=== PATIENT | female | born 1945 | race Caucasian/White ===

== ENCOUNTER 2017-04-03 13:12 | Inpatient (IN) | payer BC, MEDICARE ==
--- NOTE | 2017-04-03 13:36 | ED ---
General Adult HPI - General Chief complaint: Weakness Stated complaint: Chest Pain Time Seen by Provider: 04/03/17 13:30 Source: patient, RN notes reviewed, old records reviewed Mode of arrival: wheelchair Limitations: no limitations - History of Present Illness Initial comments: This is a 72-year-old female here for evaluation of shortness of breath cough and congestion, exertional dyspnea. Patient's brought him for evaluation regarding shortness of breath. Patient is a positive smoker with history of COPD. Vision denies any chest pain, states her symptoms went on for about a week. Progressively worsening, worsening source of breath with exertion. No chest pain. No symptoms symptoms of syncope. No significant improvement with breathing treatments. Patient is not on oxygen - Related Data Home Medications Medication Instructions Recorded Confirmed No Known Home Medications [No 04/03/17 04/03/17 Known Home Medications] Allergies Allergy/AdvReac Type Severity Reaction Status Date / Time Sulfa (Sulfonamide Allergy Anaphylaxis Verified 04/03/17 13:58 Antibiotics) Review of Systems ROS Statement: Those systems with pertinent positive or pertinent negative responses have been documented in the HPI. ROS Other: All systems not noted in ROS Statement are negative. Past Medical History Past Medical History: COPD Additional Past Medical History / Comment(s): blood clots History of Any Multi-Drug Resistant Organisms: None Reported Past Surgical History: Hysterectomy Additional Past Surgical History / Comment(s): (L) wrist surgery, craniotomy Past Psychological History: No Psychological Hx Reported Smoking Status: Current every day smoker Past Alcohol Use History: Occasional Past Drug Use History: None Reported General Exam Limitations: no limitations General appearance: alert, in no apparent distress, cachectic Head exam: Present: atraumatic, normocephalic, normal inspection Eye exam: Present: normal appearance, PERRL, EOMI. Absent: scleral icterus, conjunctival injection, periorbital swelling ENT exam: Present: normal exam, mucous membranes dry Neck exam: Present: normal inspection. Absent: tenderness, meningismus, lymphadenopathy Respiratory exam: Present: wheezes, decreased breath sounds, prolonged expiratory. Absent: normal lung sounds bilaterally, respiratory distress, rales , rhonchi, stridor Cardiovascular Exam: Present: regular rate, normal rhythm, normal heart sounds. Absent: systolic murmur, diastolic murmur, rubs, gallop, clicks GI/Abdominal exam: Present: soft, normal bowel sounds. Absent: distended, tenderness, guarding, rebound, rigid Extremities exam: Present: normal inspection, full ROM, normal capillary refill. Absent: tenderness, pedal edema, joint swelling, calf tenderness Back exam: Present: normal inspection Neurological exam: Present: alert, oriented X3, CN II-XII intact Psychiatric exam: Present: normal affect, normal mood Skin exam: Present: warm, dry, intact, normal color. Absent: rash Course Vital Signs 04/03/17 04/03/17 13:13 13:20 Temperature 98.1 F 97.3 F L Pulse Rate 81 72 Respiratory 20 16 Rate Blood Pressure 149/68 150/71 O2 Sat by Pulse 100 99 Oximetry - Reevaluation(s) Reevaluation #1: 04/03/17 14:54 Patient does have good breathing improvement and feeling better with hydration, no chest pain EKG Findings - EKG Comments: EKG Findings:: EKG shows normal sinus rate of 82, IL 140, QRS 106, QTC 467 Medical Decision Making - Medical Decision Making 72 female here for evaluation of shortness of breath, increasing exertional dyspnea. Anemia, COPD exacerbation, renal failure dehydration and elevated troponin. Patient be admitted for trending of hemoglobin and troponin, treatment of COPD and rehydration - Lab Data Result diagrams: 04/03/17 13:45 04/03/17 13:45 Lab Results 04/03/17 04/03/17 04/03/17 Range/Units 13:45 13:45 13:45 WBC 4.4 (3.8-10.6) k/uL RBC 2.38 L (3.80-5.40) m/uL Hgb 7.7 L (11.4-16.0) gm/dL Hct 25.0 L (34.0-46.0) % MCV 105.0 H (80.0-100.0) fL MCH 32.3 (25.0-35.0) pg MCHC 30.8 L (31.0-37.0) g/dL RDW 17.7 H (11.5-15.5) % Plt Count 244 (150-450) k/uL Sodium 136 L (137-145) mmol/L Potassium 3.2 L (3.5-5.1) mmol/L Chloride 110 H (98-107) mmol/L Carbon Dioxide 16 L (22-30) mmol/L Anion Gap 10 mmol/L BUN 24 H (7-17) mg/dL Creatinine 2.52 H (0.52-1.04) mg/dL Est GFR (MDRD) Af Amer 23 (>60 ml/min/1.73 sqM) Est GFR (MDRD) Non-Af 19 (>60 ml/min/1.73 sqM) Glucose 88 (74-99) mg/dL Calcium 8.1 L (8.4-10.2) mg/dL Phosphorus 2.9 (2.5-4.5) mg/dL Magnesium 2.3 (1.6-2.3) mg/dL Total Bilirubin 0.5 (0.2-1.3) mg/dL AST 26 (14-36) U/L ALT 23 (9-52) U/L Alkaline Phosphatase 80 (38-126) U/L Total Creatine Kinase 30 (30-135) U/L CK-MB (CK-2) 0.7 (0.0-2.4) ng/mL CK-MB (CK-2) Rel Index 2.3 Troponin I 0.041 H* (0.000-0.034) ng/mL Total Protein 7.0 (6.3-8.2) g/dL Albumin 3.1 L (3.5-5.0) g/dL - Radiology Data Radiology results: report reviewed (Chest x-ray shows possible mild effusion), image reviewed Critical Care Time Critical Care Time: Yes Total Critical Care Time: 31 Disposition Clinical Impression: Dehydration, Hypokalemia, ARF (acute renal failure), Elevated troponin, COPD exacerbation, Anemia Disposition: ADMITTED IP TO THIS HOSP Condition: Undetermined Referrals: Amanda Cali MD [Primary Care Provider] - 1-2 days
[2017-04-03 13:57] LABS: Anisocytosis Slight; Basophils % (A) 0 %; CHCM 30.8; Eosinophils # (A) 0.1 k/uL (0-0.7); Eosinophils % (A) 1 %; HDW 3.12; HGB 7.7 gm/dL (11.4-16.0); Hypochromasia Moderate; Luc # (Auto) 0.09; Luc % (Auto) 2; Lymphocytes # (A) 0.5 k/uL (1.0-4.8); Lymphocytes % (A) 11 %; MCH 32.3 pg (25.0-35.0); MCHC 30.8 g/dL (31.0-37.0); Macrocytosis Marked; Mean Platelet Volume 8.8; Monocytes # (A) 0.3 k/uL (0-1.0); Monocytes % (A) 6 %; Neutrophils # (A) 3.5 k/uL (1.3-7.7); Neutrophils % (A) 79 %; RBC 2.38 m/uL (3.80-5.40); RDW 17.7 % (11.5-15.5); WBC 4.4 k/uL (3.8-10.6)
--- NOTE | 2017-04-03 14:11 | XR ---
EXAMINATION TYPE: XR chest 2V DATE OF EXAM: 04/03/2017 COMPARISON: Chest x-ray February 05, 2015. HISTORY: Weakness and heart palpitations, shortness of breath. TECHNIQUE: Frontal and lateral views of the chest are obtained. FINDINGS: There is new small to tiny right pleural effusion and new moderate size left pleural effus ion. There is associated left basilar atelectasis and/or infiltrate. The cardiac silhouette size is within normal limits with atherosclerotic change in aortic knob. Vascular calcification left axilla i s noted. IMPRESSION: New small to tiny right and moderate size left pleural effusion with associated left bas ilar atelectasis and/or infiltrate.
[2017-04-03 14:13] LABS: Calcium 8.1 mg/dL (8.4-10.2); Magnesium 2.3 mg/dL (1.6-2.3); Phosphorous 2.9 mg/dL (2.5-4.5); Potassium 3.2 mmol/L (3.5-5.1); Total Bilirubin 0.5 mg/dL (0.2-1.3)
[2017-04-03 14:33] LABS: Creatine Kinase MB 0.7 ng/mL (0.0-2.4)
[2017-04-03 14:38] LABS: Partial Thromboplastin Time 23.3 sec (22.0-30.0); Prothrombin Time 10.3 sec (9.0-12.0)
[2017-04-03 14:42] LABS: Troponin I 0.041 ng/mL (0.000-0.034)
[2017-04-03] MEDS ORDERED: IPRATROPIUM-ALBUTEROL 3 ML NEB INHALATION STA (14:45)
[2017-04-03] MEDS ORDERED: SODIUM CHLORIDE 0.9% 500 ML IV STA (14:45)
[2017-04-03] MEDS ORDERED: SODIUM CHLORIDE 0.9% 1,000 ML IV STA ×2 (14:45)
[2017-04-03] MEDS ORDERED: methylPREDNISolone SOD SUCCI 125 MG/2 ML VIAL IV STA (14:46)
[2017-04-03] MEDS ORDERED: HEPARIN SODIUM,PORCINE 5,000 UNIT/ML 1 ML VIAL IV ONE (14:48)
[2017-04-03] MEDS ORDERED: HEPARIN SODIUM,PORCINE 5,000 UNIT/ML 1 ML VIAL IV PRN (14:48)
[2017-04-03] MEDS ORDERED: ASPIRIN 81 MG CHEW PO STA (14:48)
[2017-04-03] MEDS ORDERED: NITROGLYCERIN SL TABS 0.4 MG TAB SUBLINGUAL PRN (14:48)
[2017-04-03] MEDS: HEPARIN SODIUM,PORCINE/D5W PMX 25,000 UNIT in DEXTROSE/WATER 1 500ML.BAG IV SCH (15:12)
[2017-04-03 15:22] LABS: Ovalocytes Present
[2017-04-03] MEDS: IPRATROPIUM-ALBUTEROL 3 ML NEB INHALATION SCH ×2 (16:28→19:46)
[2017-04-03 17:04] LABS: Glucose,Whole Blood 127 mg/dL (75-99)
[2017-04-03] MEDS: methylPREDNISolone SOD SUCCI 125 MG/2 ML VIAL IV SCH ×2 (18:55→23:07)
[2017-04-03 19:56] LABS: Creatine Kinase MB 0.6 ng/mL (0.0-2.4)
[2017-04-03 20:02] LABS: Troponin I 0.037 ng/mL (0.000-0.034)
[2017-04-03 20:39] LABS: Glucose,Whole Blood 261 mg/dL (75-99)
[2017-04-03] MEDS ORDERED: IPRATROPIUM-ALBUTEROL 3 ML NEB INHALATION PRN (21:52)
[2017-04-03 23:01] LABS: Glucose,Whole Blood 310 mg/dL (75-99)
[2017-04-03] MEDS: INSULIN LISPRO (humaLOG) 300 UNIT/3 ML VIAL SQ SCH (23:01)
[2017-04-04 03:10] LABS: Creatine Kinase MB 0.7 ng/mL (0.0-2.4); Troponin I 0.032 ng/mL (0.000-0.034)
[2017-04-04 05:57] LABS: Glucose,Whole Blood 163 mg/dL (75-99)
[2017-04-04 06:06] LABS: Cholesterol 108 mg/dL (<200); HDL Cholesterol 44 mg/dL (40-60); Triglycerides 49 mg/dL (<150)
[2017-04-04] MEDS: methylPREDNISolone SOD SUCCI 125 MG/2 ML VIAL IV SCH ×2 (06:28→11:39)
[2017-04-04] MEDS: INSULIN LISPRO (humaLOG) 300 UNIT/3 ML VIAL SQ SCH ×4 (06:29→21:03)
[2017-04-04] MEDS: IPRATROPIUM-ALBUTEROL 3 ML NEB INHALATION SCH ×4 (08:07→19:22)
[2017-04-04] MEDS ORDERED: ASPIRIN 325 MG TAB PO SCH (09:00)
--- NOTE | 2017-04-04 09:21 | P.NPCON ---
History of Present Illness - Reason for Consult acute renal failure - History of Present Illness Reason for consultation: Acute kidney injury History of present illness: Patient is a 72-year-old female seen in renal consultation for acute kidney injury. Unclear as to where baseline renal function is. Looking at previous records, her creatinine in March 2015 was 3.45. This admission a creatinine is 2.52. Patient presented with exertional dyspnea. Patient states she felt extremely weak and felt her heart pounding while ambulating very short distances. She did have an episode of chest pain this morning which resolved spontaneously. She denies use of NSAIDs. Denies any prior history of kidney disease. Denies family history of renal disease. Oral intake has been fair. No vomiting or diarrhea. Admits to good urine output. No hematuria or dysuria. Her blood pressures have been quite labile ranging from systolic low 100s up to 174 this admission. She did receive a 500 mL bolus in the emergency room and is currently maintained on a heparin drip. She does have history of tobacco abuse and admits to smoking about a pack a day for the last several years. No history of diabetes. Vital signs are stable. General: The patient appeared well nourished and normally developed. HEENT: Head exam is unremarkable. Neck is without jugular venous distension. LUNGS: Lungs are clear to auscultation and percussion. Breath sounds decreased. HEART: Rate and Rhythm are regular. First and second heart sounds normal. No murmurs, rubs or gallops. ABDOMEN: Abdominal exam reveals normal bowel sounds. Non-tender and non- distended. No evidence of peritonitis. EXTREMITITES: No clubbing, cyanosis, or edema. Past Medical History Past Medical History: COPD, Osteoarthritis (OA) Additional Past Medical History / Comment(s): "in past fell off her proch hit head so hard it moved her brain and developed 7 blood clots for which she had a craniotomy", past lt broken writs(sx to repair", shingles , ulcer, murmur. History of Any Multi-Drug Resistant Organisms: None Reported Past Surgical History: Hysterectomy, Tonsillectomy, Tubal Ligation Additional Past Surgical History / Comment(s): (L) wrist surgery, craniotomy Past Anesthesia/Blood Transfusion Reactions: No Reported Reaction Smoking Status: Current every day smoker - Past Family History Father Family Medical History: No Reported History Mother Additional Family Medical History / Comment(s): stomcah problems and ulcers. Medications and Allergies Home Medications Medication Instructions Recorded Confirmed Type No Known Home Medications [No 04/03/17 04/03/17 History Known Home Medications] Allergies Allergy/AdvReac Type Severity Reaction Status Date / Time Sulfa (Sulfonamide Allergy Anaphylaxis Verified 04/03/17 13:58 Antibiotics) Physical Exam Vitals: Vital Signs Temp Pulse Pulse Resp BP BP Pulse Ox 04/04/17 08:53 70 04/04/17 08:43 68 04/04/17 04:00 98 F 82 18 113/58 98 04/03/17 23:22 86 18 108/54 97 04/03/17 20:00 97.8 F 76 18 112/55 99 04/03/17 19:57 66 04/03/17 19:46 68 04/03/17 15:57 64 18 174/74 98 04/03/17 15:47 66 04/03/17 15:36 68 04/03/17 15:15 98.4 F 69 16 136/64 100 04/03/17 14:48 98 04/03/17 13:20 97.3 F L 72 16 150/71 99 04/03/17 13:13 98.1 F 81 20 149/68 100 Intake and Output 04/03/17 04/04/17 04/04/17 22:59 06:59 14:59 Intake Total 200 182.535 240 Balance 200 182.535 240 Intake: Intake, IV Titration 182.535 Amount Heparin Sodium,Porcine/ 182.535 D5w Pmx 25,000 unit In Dextrose/Water 1 500ml. bag @ 12 UNITS/KG/HR 14. 15 mls/hr IV .Q24H [facility] Rx #:[id number] Oral 200 240 Other: # Voids 1 Weight 44.9 kg Results - Lab Results Most recent lab results Calcium 8.1 mg/dL (8.4-10.2) L 04/03/17 13:45 Phosphorus 2.9 mg/dL (2.5-4.5) 04/03/17 13:45 Magnesium 2.3 mg/dL (1.6-2.3) 04/03/17 13:45 04/03/17 13:45 04/03/17 13:45 Assessment and Plan Plan: Assessment: #1. Nonoliguric acute kidney injury that appears mostly prerenal in nature. Creatinine 2.5 on admission. Labs from today are pending at this time. Unclear as to what her baseline renal function is. Creatinine was 3.45 from March 2015. No other records are available at this time. #2. Metabolic acidosis secondary to acute kidney injury. #3. Hypokalemia related to poor nutritional status. Magnesium level normal. I don't see any diuretics and her home medications. I don't see evidence of hyper aldosteronism as her blood pressures are on the lower side. #4. Anemia. Rule out iron deficiency. #5. Rule out chronic kidney disease. Plan: Check urinalysis. Check renal ultrasound. Check ferritin level and iron studies. Start oral sodium bicarbonate 1300 mg twice daily. Start normal saline to be run at 60 mL an hour. Follow-up morning labs and repeat electrolytes again in the morning. Monitor hemoglobin closely. Patient currently also on heparin drip. Thank you for the consultation. I will continue to follow the patient with you during her hospital stay.
[2017-04-04 09:26] LABS: Hemoglobin A1C 4.5 % (4.2-6.1)
[2017-04-04] MEDS ORDERED: SODIUM CHLORIDE 0.9% 1,000 ML IV SCH (09:30)
[2017-04-04 10:05] LABS: Mean Platelet Volume 8.9
[2017-04-04 10:12] LABS: Appearance,Urine Clear (Clear); Bilirubin,Urine Negative (Negative); Glucose,Urine (UA) 2+ (Negative); Ketones,Urine Negative (Negative); Leukocyte Esterase,Urine Trace (Negative); Nitrite,Urine Negative (Negative); Particle Count 7124; Protein,Urine 1+ (Negative); RBC,Urine <1 /hpf (0-5); Specific Gravity,Urine 1.007 (1.001-1.035); Squamous Epithelial Cell,Urine <1 /hpf (0-4); UA Billing (MACRO vs. MICRO) MICRO; Urobilinogen,Urine <2.0 mg/dL (<2.0); WBC,Urine 3 /hpf (0-5)
[2017-04-04 10:20] LABS: Calcium 7.8 mg/dL (8.4-10.2); Potassium 3.2 mmol/L (3.5-5.1)
[2017-04-04] MEDS: NICOTINE 21MG/24HR PATCH TRANSDERM SCH (10:42)
[2017-04-04] MEDS ORDERED: POTASSIUM CHLORIDE ER 20 MEQ TAB.ER PO STA (11:23)
[2017-04-04 11:30] LABS: Glucose,Whole Blood 297 mg/dL (75-99)
[2017-04-04] MEDS ORDERED: FUROSEMIDE 10 MG/ML 4 ML VIAL IV STA (11:36)
[2017-04-04] MEDS: WATER FOR INJECTION, STERILE 1,000 ML with SODIUM ACETATE 150 MEQ IV SCH ×2 (11:48)
--- NOTE | 2017-04-04 11:54 | US ---
EXAMINATION TYPE: US kidneys/renal and bladder DATE OF EXAM: 04/04/2017 COMPARISON: 05/05/2015 CLINICAL HISTORY: carmen. History of renal cysts EXAM MEASUREMENTS: Right Kidney: 7.0 x 3.1 x 2.8 cm Left Kidney: 9.1 x 4.8 x 5.0 cm Right Kidney: atrophic, echogenic with cortical thinning, lobulated, cystic area mid = 1.0 x 1.0 x 1. 1cm Left Kidney: Multiple cysts noted, largest = 1.1 x 0.9 x 1.2cm Bladder: appears wnl Bilateral Jets seen: no IMPRESSION: 1. Right kidney is atrophic with cortical thinning and findings suggestive of chronic medical renal d isease. 2. Multiple hypoechoic nodules involving the left kidney most typical of renal cysts
[2017-04-04 12:02] LABS: % Iron Saturation 8.8 % (20-50)
--- NOTE | 2017-04-04 15:05 | P.CRDCN ---
History of Present Illness Consult date: 04/04/17 Requesting physician: Colin Lopez Consult reason: congestive heart failure Chief complaint: Shortness of breath and palpitations History of present illness: This is a 72-year-old female with history of nicotine dependence, COPD , who presents to the hospital with symptoms of worsening shortness of breath with associated palpitations. She states that she feels the palpitations mostly when she exerts herself. Patient also has history of craniotomy for removal of blood clots after experiencing a fall. EKG performed on arrival here showed a normal sinus rhythm with nonspecific ST-T wave changes.. On review of the rhythm strips it does appear patient had an episode of Ultrasound of the kidneys and bladder reveal multiple hypodense echo with nodules involving the left kidney. Right kidney is atrophic suggestive of chronic renal disease. Chest x-ray shows new right side moderate pleural effusion. Hemoglobin 7.7, platelet count 244, sodium 136, potassium 3.2, BUN 24, creatinine 2.5 on admission, this morning BUN is 31 with creatinine of 2.9. Nephrology consultation has been requested. Initial troponin 0.037, subsequent troponin 0.032. BNP level18,800. Patient was given a one-time dose of IV Lasix by nephrology. Continues to be on IV heparin for the abnormal troponin. We will decrease the aspirin 81 mg daily. Patient also received 2500 mL normal saline in the emergency room. Past Medical History Past Medical History: COPD, Osteoarthritis (OA) Additional Past Medical History / Comment(s): "in past fell off her proch hit head so hard it moved her brain and developed 7 blood clots for which she had a craniotomy", past lt broken writs(sx to repair", shingles , ulcer, murmur. History of Any Multi-Drug Resistant Organisms: None Reported Past Surgical History: Hysterectomy, Tonsillectomy, Tubal Ligation Additional Past Surgical History / Comment(s): (L) wrist surgery, craniotomy Past Anesthesia/Blood Transfusion Reactions: No Reported Reaction Smoking Status: Current every day smoker - Past Family History Father Family Medical History: No Reported History Mother Additional Family Medical History / Comment(s): stomcah problems and ulcers. Medications and Allergies Home Medications Medication Instructions Recorded Confirmed Type No Known Home Medications [No 04/03/17 04/03/17 History Known Home Medications] Allergies Allergy/AdvReac Type Severity Reaction Status Date / Time Sulfa (Sulfonamide Allergy Anaphylaxis Verified 04/03/17 13:58 Antibiotics) Physical Exam Vitals: Vital Signs Temp Pulse Pulse Resp BP BP Pulse Ox 04/04/17 14:10 74 04/04/17 13:58 72 04/04/17 12:00 97.1 F L 86 20 133/62 99 04/04/17 08:53 70 04/04/17 08:43 68 04/04/17 08:00 97.0 F L 68 18 148/80 100 04/04/17 04:00 98 F 82 18 113/58 98 04/03/17 23:22 86 18 108/54 97 04/03/17 20:00 97.8 F 76 18 112/55 99 04/03/17 19:57 66 04/03/17 19:46 68 04/03/17 15:57 64 18 174/74 98 04/03/17 15:47 66 04/03/17 15:36 68 04/03/17 15:15 98.4 F 69 16 136/64 100 04/03/17 14:48 98 Intake and Output 04/03/17 04/04/17 04/04/17 22:59 06:59 14:59 Intake Total 200 182.535 240 Output Total 300 Balance 200 182.535 -60 Intake: Intake, IV Titration 182.535 Amount Heparin Sodium,Porcine/ 182.535 D5w Pmx 25,000 unit In Dextrose/Water 1 500ml. bag @ 12 UNITS/KG/HR 14. 15 mls/hr IV .Q24H [facility] Rx #:[id number] Oral 200 240 Output: Urine 300 Other: # Voids 1 1 Weight 44.9 kg 44.9 kg Patient Weight 04/05/17 06:59 Weight 44.9 kg PHYSICAL EXAMINATION: HEENT: Head is atraumatic, normocephalic. Pupils equal, round. Neck is supple. There is no elevated jugular venous pressure. HEART EXAMINATION: Heart S1 and S2 systolic murmur is heard. CHEST EXAMINATION: Lungs revealed decreased air exchange throughout with fine expiratory wheezes and diminished air entry to bilateral bases. ABDOMEN: Soft, nontender. Bowel sounds are heard. No organomegaly noted. EXTREMITIES: 2+ peripheral pulses with no evidence of peripheral edema and no calf tenderness noted. NEUROLOGIC patient is awake, alert and oriented -3. . Results 04/04/17 09:33 04/04/17 09:33 Cardiac Enzymes 04/03/17 04/03/17 04/04/17 Range/Units 13:45 19:05 02:12 CK-MB (CK-2) 0.7 0.6 0.7 (0.0-2.4) ng/mL Troponin I 0.041 H* 0.037 H* 0.032 (0.000-0.034) ng/mL Coagulation 04/03/17 04/03/17 04/04/17 Range/Units 14:14 19:15 02:12 PT 10.3 (9.0-12.0) sec APTT 23.3 65.2 H 43.6 H (22.0-30.0) sec 04/04/17 Range/Units 09:33 PT (9.0-12.0) sec APTT 45.1 H (22.0-30.0) sec Lipids 04/04/17 Range/Units 02:12 Triglycerides 49 (<150) mg/dL Cholesterol 108 (<200) mg/dL HDL Cholesterol 44 (40-60) mg/dL CBC 04/03/17 04/04/17 Range/Units 13:45 09:33 WBC 4.4 (3.8-10.6) k/uL RBC 2.38 L (3.80-5.40) m/uL Hgb 7.7 L (11.4-16.0) gm/dL Hct 25.0 L (34.0-46.0) % Plt Count 244 239 (150-450) k/uL Comprehensive Metabolic Panel 04/04/17 Range/Units 09:33 Sodium 136 L (137-145) mmol/L Potassium 3.2 L (3.5-5.1) mmol/L Chloride 110 H (98-107) mmol/L Carbon Dioxide 13 L (22-30) mmol/L BUN 31 H (7-17) mg/dL Creatinine 2.90 H (0.52-1.04) mg/dL Glucose 193 H (74-99) mg/dL Calcium 7.8 L (8.4-10.2) mg/dL Current Medications Generic Name Dose Route Start Last Admin Trade Name Freq PRN Reason Stop Dose Admin Albuterol/Ipratropium 3 ml 04/03/17 21:52 04/04/17 08:42 Duoneb 0.5 Mg-3 Mg/3 Ml Soln INHALATION 3 ml RT-QID PRN Administration Shortness Of Breath Or Wheezing Albuterol/Ipratropium 3 ml 04/04/17 08:00 04/04/17 13:58 Duoneb 0.5 Mg-3 Mg/3 Ml Soln INHALATION 3 ml RT-QID DINORAH Administration Aspirin 325 mg 04/04/17 09:00 04/04/17 08:06 Aspirin PO 325 mg DAILY DINORAH Administration Heparin Sodium (Porcine) 0 unit 04/03/17 14:48 Heparin IV Q6HR PRN Low PTT Protocol Heparin Sodium/Dextrose 25,000 500 mls @ 14.15 mls/hr 04/03/17 15:00 04:06 unit/ IV Solution IV 14 units/kg/hr .Q24H DINORAH 16.51 mls/hr Protocol Titration 12 UNITS/KG/HR Sodium Acetate 150 meq/ 1,075 mls @ 60 mls/hr 04/04/17 11:45 04/04/17 11:48 Sterile Water IV 60 mls/hr .[id number] DINORAH Administration Insulin Human Lispro 0 unit 04/03/17 22:15 04/04/17 11:39 Humalog SQ 3 unit ACHS DINORAH Administration Protocol Nicotine 1 patch 04/04/17 09:00 04/04/17 10:42 Habitrol 21mg/24hr Patch TRANSDERM Not Given DAILY [facility] Nitroglycerin 0.4 mg 04/03/17 14:48 Nitrostat SUBLINGUAL Q5M PRN Chest Pain Prednisone 40 mg 04/05/17 09:00 PO DAILY DINORAH Sodium Bicarbonate 1,300 mg 04/04/17 21:00 Sodium Bicarbonate Tab PO BID DINORAH Intake and Output 04/03/17 04/04/17 04/04/17 22:59 06:59 14:59 Intake Total 200 182.535 240 Output Total 300 Balance 200 182.535 -60 Intake: Intake, IV Titration 182.535 Amount Heparin Sodium,Porcine/ 182.535 D5w Pmx 25,000 unit In Dextrose/Water 1 500ml. bag @ 12 UNITS/KG/HR 14. 15 mls/hr IV .Q24H [facility] Rx #:[id number] Oral 200 240 Output: Urine 300 Other: # Voids 1 1 Weight 44.9 kg 44.9 kg Patient Weight 04/05/17 06:59 Weight 44.9 kg 04/04/17 09:33 04/04/17 09:33 EKG Interpretations (text) EKG shows normal sinus rhythm with no acute changes. Assessment and Plan Plan: Assessment and plan #1 symptoms of shortness of breath, likely exacerbation of COPD. #2 acute on chronic renal failure #3 nicotine dependence #4 history of COPD #5 complaints of intermittent exertional palpitations or with evidence of brief run of supraventricular tachycardia #6 hypokalemia #7 abnormal BNP in the setting of acute renal failure #8 abnormal troponin, not consistent with acute coronary syndrome, likely secondary to acute renal failure. Plan We will obtain an echocardiogram with Doppler study. Discontinue IV heparin, decrease aspirin 81 mg daily. We will also start the patient on verapamil 40 mg one tablet by mouth 3 times a day. Further recommendations to follow. DNP note has been reviewed, I agree with a documented findings and plan of care. Patient was seen and examined.
--- NOTE | 2017-04-04 15:16 | P.PN ---
Progress Note - Text This is an addendum to the dictated cardiology consultation. The patient has a history of chronic tobacco use, drinks alcohol on a daily basis and has a history of murmur who presents with symptoms of palpitations, progressive dyspnea but no clear peripheral edema, PND or orthopnea. She denies any chest pain. On presentation she was noted to be in sinus mechanism and on the rhythm strips she had a short burst of what appears to be AV stalin reentry tachycardia. She has renal failure and has been losing weight recently. She is limited in her physical activity. On examination she has decreased breath sounds on the left was severely decreased air exchange and she has a systolic and diastolic murmur at the left upper sternal border. No peripheral edema was noted. Her lab data shows minimal elevation of the troponin which is nondiagnostic, renal failure, anemia and significantly elevated NT proBNP. The value of the NT proBNP in the face of renal failure is suboptimal. Her chest x-ray shows at least moderate left sided effusion. 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 She has findings consistent with severe COPD, aortic regurgitation and renal failure. I will obtain an echocardiogram with Doppler, follow her renal function closely and we will await the input of the pulmonary service in regard to her lung status and pleural effusion. Thank you for this consult we will follow with you.
[2017-04-04] MEDS: HEPARIN SODIUM,PORCINE/D5W PMX 25,000 UNIT in DEXTROSE/WATER 1 500ML.BAG IV SCH (15:44)
[2017-04-04] MEDS: VERAPAMIL 40 MG TAB PO SCH ×2 (16:16→21:03)
[2017-04-04 16:27] LABS: Glucose,Whole Blood 220 mg/dL (75-99)
--- NOTE | 2017-04-04 20:02 | HP ---
DATE OF ADMISSION: Patient is a 72-year-old female who came in with ( ) symptoms of ( ) without any orthopnea, PND or palpitations. Patient is in sinus rhythm here in the hospital. Patient has occasional episodes of sinus tachycardia. Patient incidentally was found elevated creatinine of 2.52 with elevated BUN and also non-anion gap metabolic acidosis. Patient denied any nausea, vomiting, diarrhea. Patient is also found to have mildly elevated troponins. At that time patient did not have any chest pain, although patient had an episode of chest pain that appeared to be non-cardiac today morning. It appeared to be mostly gastritis. We are obtaining an echocardiogram. Patient has bilateral pleural effusions without any early ARB lines. Patient was given a dose of Lasix as well and patient is at present on IV fluids ( ) that is being managed by Nephrology. Patient does have history of smoking apparently. Apparently patient was quite short of breath when she came in. Now patient has minimally decreased air entry ( ) expiratory wheezing. Switching her steroids to oral steroids. Will also obtain a brain natriuretic peptide. REVIEW OF SYSTEMS: CONSTITUTIONAL: No fever, no malaise, no fatigue. HEENT: No recent visual problems or hearing problems. Denied any sore throat. CARDIOVASCULAR: As mentioned above. PULMONARY: As mentioned above. GASTROINTESTINAL: No diarrhea, no nausea, no vomiting, no abdominal pain. Normoactive bowel sounds. NEUROLOGICAL: No headaches, no weakness, no numbness. HEMATOLOGICAL: Denies any bleeding or petechiae. GENITOURINARY: Denies any burning micturition, frequency, or urgency. MUSCULOSKELETAL/RHEUMATOLOGICAL: Denies any joint pain, swelling, or any muscle pain. ENDOCRINE: Denies any polyuria or polydipsia. The rest of the 14 point review of systems is negative. PAST MEDICAL HISTORY: 1. COPD. 2. Osteoarthritis. Patient does not use any medications at home. PAST SURGICAL HISTORY: 1. Hysterectomy. 2. Tonsillectomy. 3. Tubal ligation surgery. SOCIAL HISTORY: Patient does smoke a pack per day. Denied any alcohol abuse or any drug abuse. FAMILY HISTORY: Mother had some stomach problems and ulcer problems. ALLERGIES: SULFA DRUGS. PHYSICAL EXAMINATION: VITAL SIGNS: Temperature 98.0, pulse of 68, respiratory rate of 18, blood pressure 113/58. Saturating at 98% room air. GENERAL: The patient is alert and oriented x3, not in any acute distress. Well developed, well nourished. HEENT: Pupils are round and equally reacting to light. EOMI. No scleral icterus. No conjunctival pallor. Normocephalic, atraumatic. No pharyngeal erythema. No thyromegaly. CARDIOVASCULAR: S1 and S2 present. No murmurs, rubs, or gallops. PULMONARY: Minimally decreased air entry into bilateral lung rosales. Minimal expiratory wheezing was appreciated. ABDOMEN: Soft, nontender, nondistended, normoactive bowel sounds. No palpable organomegaly. MUSCULOSKELETAL: No joint swelling or deformity. EXTREMITIES: No cyanosis, clubbing, or pedal edema. NEUROLOGICAL: Gross neurological examination did not reveal any focal deficits. SKIN: No rashes. LABORATORY DATA: CBC, CMP are abnormal for low hemoglobin of 7.7. Will obtain a B12 and a folate level. Chloride of 110. Bicarbonate of 16. Sodium 136. Potassium 3.2. BUN of 24, creatinine of 2.52. ASSESSMENT AND PLAN: 1. Acute kidney injury, most probably prerenal azotemia from intravascular volume depletion. Patient was started on IV fluids. Patient may have some chronic kidney disease as well ( ) consistent with ( ) congestion with some chronic kidney disease. Etiology of chronic kidney disease is unknown at this point of time. 2. Anemia. Will obtain B12 levels because of the macrocytic anemia. ( ) was ordered by Nephrology the other day. 3. Metabolic acidosis secondary to: 1) hyperchloremia, 2) kidney disease. 4. Elevated troponins, probably due to renal dysfunction. It appeared to be non-cardiac. Cardiology evaluated the patient and patient is getting an echocardiogram. 5. Chest pain, mostly appears to be gastritis, for which patient will be on a proton pump inhibitor. 6. Hypokalemia secondary to poor nutritional status, for which potassium will be supplemented ( ) 7. Acute respiratory failure, probably hypercapnic respiratory failure, improved with systemic steroids and ( ) patient may have COPD with ( ). 8. Moderate protein-calorie malnutrition due to poor oral intake. 9. Fatigue and excessive generalized weakness because of the above-mentioned multiple medical issues. I will obtain ( ) consultation. Will also rule out congestive heart failure with echocardiogram, as patient has minimal bilateral pleural effusions.
[2017-04-04] MEDS: SODIUM BICARBONATE TAB 650 MG TAB PO SCH (21:03)
[2017-04-04 21:17] LABS: Glucose,Whole Blood 221 mg/dL (75-99)
[2017-04-05 05:58] LABS: Glucose,Whole Blood 110 mg/dL (75-99)
[2017-04-05] MEDS: WATER FOR INJECTION, STERILE 1,000 ML with SODIUM ACETATE 150 MEQ IV SCH ×4 (06:07→12:46)
[2017-04-05] MEDS: INSULIN LISPRO (humaLOG) 300 UNIT/3 ML VIAL SQ SCH ×4 (06:07→21:19)
[2017-04-05] MEDS: IPRATROPIUM-ALBUTEROL 3 ML NEB INHALATION SCH ×4 (07:13→20:44)
[2017-04-05 07:24] LABS: Calcium 7.3 mg/dL (8.4-10.2); Potassium 3.6 mmol/L (3.5-5.1); Total Bilirubin 0.3 mg/dL (0.2-1.3); Total Protein 5.9 g/dL (6.3-8.2)
[2017-04-05 07:28] LABS: Anisocytosis Slight; CH 32.7; CHCM 32.3; HDW 3.36; Hypochromasia Slight; MCH 32.1 pg (25.0-35.0); MCHC 31.4 g/dL (31.0-37.0); MCV 102.3 fL (80.0-100.0); Macrocytosis Moderate; RBC 1.68 m/uL (3.80-5.40); RDW 18.4 % (11.5-15.5); WBC 9.8 k/uL (3.8-10.6)
[2017-04-05 07:56] LABS: HGB 5.4 gm/dL (11.4-16.0)
[2017-04-05 07:57] LABS: HCT 17.2 % (34.0-46.0)
[2017-04-05] MEDS: SODIUM BICARBONATE TAB 650 MG TAB PO SCH ×2 (08:14→20:06)
[2017-04-05] MEDS: VERAPAMIL 40 MG TAB PO SCH ×3 (08:14→20:07)
[2017-04-05] MEDS: predniSONE 20 MG TAB PO SCH (08:14)
[2017-04-05] MEDS: NICOTINE 21MG/24HR PATCH TRANSDERM SCH (08:15)
[2017-04-05 08:40] LABS: Anisocytosis Slight; CH 32.5; CHCM 31.2; Hypochromasia Slight; MCH 32.1 pg (25.0-35.0); MCHC 30.5 g/dL (31.0-37.0); MCV 105.3 fL (80.0-100.0); Macrocytosis Marked; Mean Platelet Volume 9.7; RBC 1.88 m/uL (3.80-5.40); RDW 18.2 % (11.5-15.5); WBC 10.1 k/uL (3.8-10.6)
[2017-04-05 08:43] LABS: HCT 19.8 % (34.0-46.0)
[2017-04-05] MEDS ORDERED: ASPIRIN 81 MG CHEW PO SCH ×2 (09:00)
--- NOTE | 2017-04-05 10:32 | ECHOF ---
Referral Reason:r/o CHF MEASUREMENTS -------- HEIGHT: 162.6 cm WEIGHT: 44.5 kg BP: 133/62 IVSd: 1.6 cm (0.6 - 1.1) LVIDd: 3.2 cm (3.9 - 5.3) LVPWd: 1.7 cm (0.6 - 1.1) IVSs: 2.5 cm LVIDs: 1.2 cm LVPWs: 2.2 cm LAESV Index (A-L): 18.85 ml/m Ao Diam: 3.7 cm (2.0 - 3.7) AV Cusp: 1.2 cm (1.5 - 2.6) LA Diam: 2.7 cm (2.7 - 3.8) MV EXCURSION: 17.961 mm (> 18.000) MV EF SLOPE: 79 mm/s (70 - 150) EPSS: 1.0 cm MV E [place]: 1.15 m/s MV DecT: 287 ms MV A [place]: 1.32 m/s MV E/A Ratio: 0.87 AR PHT: 261 ms RAP: 5.00 mmHg RVSP: 15.94 mmHg FINDINGS -------- Resting tachycardia (HR>100bpm). This was a technically good study. There is severe concentric left ventricular hypertrophy. Left ventricular systolic function is hyperdynamic with an estimated EF of >70%. Mitral Doppler inflow pattern suggests diastolic filling abnormality 26.91. The right ventricle is normal in size and function. Normal LA size by volume 22+/-6 ml/m2. The right atrium is normal in size. Aortic valve is trileaflet and is moderately thickened. There is [id number] aortic regurgitation. The aortic pressure half-time by doppler is 261ms. There is no evidence of aortic stenosis. The mitral valve leaflets are mildly thickened. Mild mitral annular calcification present. There is trace to mild mitral regurgitation. Trace tricuspid regurgitation present. There is no evidence of pulmonary hypertension. The right ventricular systolic pressure, as measured by Doppler, is 15.94mmHg. The pulmonic valve was not well visualized. The aortic root size is normal. Normal inferior vena cava with normal inspiratory collapse consistent with estimated right atrial pressure of 5 mmHg. There is no pericardial effusion. Large Pleural Effusion. CONCLUSIONS -------- 1. Resting tachycardia (HR>100bpm). 2. The mitral valve leaflets are mildly thickened. 3. Mild mitral annular calcification present. 4. There is trace to mild mitral regurgitation. 5. Trace tricuspid regurgitation present. 6. There is no evidence of pulmonary hypertension. 7. The right ventricular systolic pressure, as measured by Doppler, is 15.94mmHg. 8. The pulmonic valve was not well visualized. 9. The aortic root size is normal. 10. There is no pericardial effusion. 11. Large Pleural Effusion. 12. This was a technically good study. 13. There is severe concentric left ventricular hypertrophy. 14. Left ventricular systolic function is hyperdynamic with an estimated EF of >70%. 15. Mitral Doppler inflow pattern suggest diastolic filling abnormality 26.91. 16. Normal LA size by volume 22+/-6 ml/m2. 17. Aortic valve is trileaflet and is moderately thickened. 18. There is [id number] aortic regurgitation. 19. The aortic pressure half-time by doppler is 261ms. [employer]: Aleks Beltre RDCS
--- NOTE | 2017-04-05 10:40 | P.CNPUL ---
History of Present Illness Consult date: 04/05/17 Reason for consult: dyspnea, chest pain, pleural effusion Chief complaint: Weakness and chest pain History of present illness: Consult dated 04/05/2017 72-year-old female poor historian. Apparently comes in with complaints of chest pain shortness of breath chest congestion and difficulty breathing. Not a particularly good historian. Apparently the patient has a history of underlying COPD from previous tobacco use. I asked whether or not she sees a waste machine offbearer. She cannot answer that question. She sees a family doctor and also sees a mine safety engineer. Anyway the patient's chest x-ray showed a very tiny right-sided effusion and a moderate left-sided effusion. The patient was admitted a couple days ago. We discussed asked to see the patient now. I suspect his for left-sided effusion. Anyway the patient does not seem particularly symptomatic at this point. Effusion is not usually by any means. She is a tiny woman. It COULD BE ORDERED AND POSSIBLE THORACENTESIS CAN BE CONTEMPLATED. THE PATIENT DENIES OTHER COMPLAINTS. AGAIN THE PATIENT IS A VERY POOR HISTORIAN. Review of Systems A 12 point review of system is attempted but the patient is a very poor historian. Mostly what I can get from her shortness of breath chest congestion cough and some chest pain. Past Medical History Past Medical History: COPD, Osteoarthritis (OA) Additional Past Medical History / Comment(s): "in past fell off her proch hit head so hard it moved her brain and developed 7 blood clots for which she had a craniotomy", past lt broken writs(sx to repair", shingles , ulcer, murmur. History of Any Multi-Drug Resistant Organisms: None Reported Past Surgical History: Hysterectomy, Tonsillectomy, Tubal Ligation Additional Past Surgical History / Comment(s): (L) wrist surgery, craniotomy Past Anesthesia/Blood Transfusion Reactions: No Reported Reaction Smoking Status: Current every day smoker - Past Family History Father Family Medical History: No Reported History Mother Additional Family Medical History / Comment(s): stomcah problems and ulcers. Medications and Allergies Home Medications Medication Instructions Recorded Confirmed Type No Known Home Medications [No 04/03/17 04/03/17 History Known Home Medications] Allergies Allergy/AdvReac Type Severity Reaction Status Date / Time Sulfa (Sulfonamide Allergy Anaphylaxis Verified 04/03/17 13:58 Antibiotics) Physical Exam Osteopathic Statement: *. No significant issues noted on an osteopathic structural exam other than those noted in the History and Physical/Consult. Vitals: Vital Signs Temp Pulse Pulse Resp BP Pulse Ox 04/05/17 07:25 72 04/05/17 07:13 72 04/05/17 03:22 98.1 F 84 16 115/64 98 04/05/17 00:00 90 18 110/67 97 04/04/17 19:49 87 04/04/17 19:48 97.8 F 87 16 95/70 98 04/04/17 19:38 68 04/04/17 19:22 68 04/04/17 15:53 97.2 F L 88 16 126/68 99 04/04/17 14:10 74 04/04/17 13:58 72 04/04/17 12:00 97.1 F L 86 20 133/62 99 Intake and Output 04/04/17 04/05/17 04/05/17 22:59 06:59 14:59 Intake Total 880 Output Total 700 600 Balance 180 -600 Intake: Intake, IV Titration 360 Amount Sodium Chloride 0.9% 1, 120 000 ml @ 60 mls/hr IV . [id number] DINORAH Rx#:[id number] Water For Injection, 240 Sterile 1,000 ml @ 60 mls /hr IV .[id number] DINORAH with Sodium Acetate 150 meq Rx #:[id number] Oral 520 Output: Urine 700 600 Other: # Voids 1 Weight 45.9 kg No acute distress, oriented 3, the patient's a very poor historian. HEENT examination is grossly unremarkable. Mucous membranes are moist. Neck supple. Full range of motion. No adenopathy. No thyromegaly. Cardiovascular examination reveals distant heart sounds. S1-S2 normal. No distinct murmur noted. No S3-S4. Lungs reveal diminished breath sounds at the left base compared to the right base. No crackles or wheezes. Breasts breath sounds are equal bilaterally. Abdomen soft bowel sounds are heard. No masses or tenderness. Extremities are without cyanosis clubbing or edema. Skin without rash. Neurologic examination nonfocal. Results - Laboratory Findings CBC and BMP: 04/05/17 08:22 04/05/17 05:34 PT/INR, D-dimer PT 10.3 sec (9.0-12.0) 04/03/17 14:14 INR 1.0 (<1.1) 04/03/17 14:14 Abnormal lab findings: Abnormal Labs 04/03/17 04/03/17 04/03/17 13:45 13:45 13:45 RBC 2.38 L Hgb 7.7 L Hct 25.0 L MCV 105.0 H MCHC 30.8 L RDW 17.7 H Lymphocytes # 0.5 L APTT Sodium 136 L Potassium 3.2 L Chloride 110 H Carbon Dioxide 16 L BUN 24 H Creatinine 2.52 H Glucose POC Glucose (mg/dL) Calcium 8.1 L Iron % Saturation Total Creatine Kinase Troponin I 0.041 H* Total Protein Albumin 3.1 L Urine Protein Urine Glucose (UA) Urine Blood Ur Leukocyte Esterase Crossmatch 04/03/17 04/03/17 04/03/17 17:02 19:05 19:15 RBC Hgb Hct MCV MCHC RDW Lymphocytes # APTT 65.2 H Sodium Potassium Chloride Carbon Dioxide BUN Creatinine Glucose POC Glucose (mg/dL) 127 H Calcium Iron % Saturation Total Creatine Kinase 27 L Troponin I 0.037 H* Total Protein Albumin Urine Protein Urine Glucose (UA) Urine Blood Ur Leukocyte Esterase Crossmatch 04/03/17 04/03/17 04/04/17 20:38 22:59 02:12 RBC Hgb Hct MCV MCHC RDW Lymphocytes # APTT 43.6 H Sodium Potassium Chloride Carbon Dioxide BUN Creatinine Glucose POC Glucose (mg/dL) 261 H 310 H Calcium Iron % Saturation Total Creatine Kinase Troponin I Total Protein Albumin Urine Protein Urine Glucose (UA) Urine Blood Ur Leukocyte Esterase Crossmatch 04/04/17 04/04/17 04/04/17 05:55 09:30 09:33 RBC Hgb Hct MCV MCHC RDW Lymphocytes # APTT 45.1 H Sodium Potassium Chloride Carbon Dioxide BUN Creatinine Glucose POC Glucose (mg/dL) 163 H Calcium Iron % Saturation Total Creatine Kinase Troponin I Total Protein Albumin Urine Protein 1+ H Urine Glucose (UA) 2+ H Urine Blood Trace H Ur Leukocyte Esterase Trace H Crossmatch 04/04/17 04/04/17 04/04/17 09:33 11:24 16:25 RBC Hgb Hct MCV MCHC RDW Lymphocytes # APTT Sodium 136 L Potassium 3.2 L Chloride 110 H Carbon Dioxide 13 L BUN 31 H Creatinine 2.90 H Glucose 193 H POC Glucose (mg/dL) 297 H 220 H Calcium 7.8 L Iron 24 L % Saturation 8.8 L Total Creatine Kinase Troponin I Total Protein Albumin Urine Protein Urine Glucose (UA) Urine Blood Ur Leukocyte Esterase Crossmatch 04/04/17 04/05/17 04/05/17 21:03 05:34 05:34 RBC 1.68 L Hgb 5.4 L* D Hct 17.2 L* MCV 102.3 H MCHC RDW 18.4 H Lymphocytes # APTT Sodium 134 L Potassium Chloride Carbon Dioxide 19 L BUN 36 H Creatinine 2.74 H Glucose POC Glucose (mg/dL) 221 H Calcium 7.3 L Iron % Saturation Total Creatine Kinase Troponin I Total Protein 5.9 L Albumin 2.6 L Urine Protein Urine Glucose (UA) Urine Blood Ur Leukocyte Esterase Crossmatch 04/05/17 04/05/17 04/05/17 05:56 08:22 08:22 RBC 1.88 L Hgb 6.0 L* Hct 19.8 L* MCV 105.3 H MCHC 30.5 L RDW 18.2 H Lymphocytes # APTT Sodium Potassium Chloride Carbon Dioxide BUN Creatinine Glucose POC Glucose (mg/dL) 110 H Calcium Iron % Saturation Total Creatine Kinase Troponin I Total Protein Albumin Urine Protein Urine Glucose (UA) Urine Blood Ur Leukocyte Esterase Crossmatch See Detail - Diagnostic Findings Chest x-ray: image reviewed (X-rays medications labs are all reviewed.) Assessment and Plan (1) COPD (chronic obstructive pulmonary disease) Status: Acute (2) CHF (congestive heart failure) Status: Acute (3) Pleural effusion Status: Acute (4) Anemia Status: Acute Plan: Plan dated 04/05/2017 The patient will have an ultrasound done of the left chest. If there is enough fluid to be drained, we'll attempt that. We'll also make sure she is on any antiplatelet drugs or blood thinners which might preclude us from doing the procedure. Mild thickening consent. Additional recommendations and suggestions are forthcoming. Time with Patient: Greater than 30
[2017-04-05] MEDS ORDERED: FUROSEMIDE 10 MG/ML 4 ML VIAL IV STA ×2 (10:49→19:01)
--- NOTE | 2017-04-05 10:50 | P.PN ---
Subjective Patient is seen in follow-up for acute kidney injury on chronic kidney disease. Creatinine peaked at 2.9 yesterday and is 2.74 today. Unclear as to what her baseline renal function is. Patient presented with dyspnea. She is noted to have bilateral pleural effusions. Her oral intake is good. Hemoglobin was noted to be 5.4 this morning and she scheduled to receive blood transfusion today. Denies any melena or hematochezia. No hemoptysis. No vomiting or diarrhea. Vital signs are stable. General: The patient appeared well nourished and normally developed. HEENT: Head exam is unremarkable. Neck is without jugular venous distension. LUNGS: Lungs are clear to auscultation and percussion. Breath sounds decreased. HEART: Rate and Rhythm are regular. First and second heart sounds normal. No murmurs, rubs or gallops. ABDOMEN: Abdominal exam reveals normal bowel sounds. Non-tender and non- distended. No evidence of peritonitis. EXTREMITITES: No clubbing, cyanosis, or edema. Objective - Vital Signs Vital signs: Vital Signs Temp 98.1 F 04/05/17 03:22 Pulse 72 04/05/17 07:25 Resp 16 04/05/17 03:22 BP 115/64 04/05/17 03:22 Pulse Ox 98 04/05/17 03:22 Intake & Output 04/04/17 04/05/17 04/05/17 18:59 06:59 18:59 Intake Total 1360 Output Total 1000 600 Balance 360 -600 Weight 44.9 kg 45.9 kg Intake: Intake, IV Titration 360 Amount Sodium Chloride 0.9% 1, 120 000 ml @ 60 mls/hr IV . [id number] DINORAH Rx#:[id number] Water For Injection, 240 Sterile 1,000 ml @ 60 mls /hr IV .[id number] DINORAH with Sodium Acetate 150 meq Rx #:[id number] Oral 1000 Output: Urine 1000 600 Other: # Voids 1 - Labs CBC & Chem 7: 04/05/17 08:22 04/05/17 05:34 Labs: Abnormal Lab Results - Last 24 Hours (Table) 04/04/17 04/04/17 04/04/17 Range/Units 09:33 11:24 16:25 RBC (3.80-5.40) m/uL Hgb (11.4-16.0) gm/dL Hct (34.0-46.0) % MCV (80.0-100.0) fL MCHC (31.0-37.0) g/dL RDW (11.5-15.5) % Sodium (137-145) mmol/L Carbon Dioxide (22-30) mmol/L BUN (7-17) mg/dL Creatinine (0.52-1.04) mg/dL POC Glucose (mg/dL) 297 H 220 H (75-99) mg/dL Calcium (8.4-10.2) mg/dL Iron 24 L (37-170) ug/dL % Saturation 8.8 L (20-50) % Total Protein (6.3-8.2) g/dL Albumin (3.5-5.0) g/dL Crossmatch 04/04/17 04/05/17 04/05/17 Range/Units 21:03 05:34 05:34 RBC 1.68 L (3.80-5.40) m/uL Hgb 5.4 L* D (11.4-16.0) gm/dL Hct 17.2 L* (34.0-46.0) % MCV 102.3 H (80.0-100.0) fL MCHC (31.0-37.0) g/dL RDW 18.4 H (11.5-15.5) % Sodium 134 L (137-145) mmol/L Carbon Dioxide 19 L (22-30) mmol/L BUN 36 H (7-17) mg/dL Creatinine 2.74 H (0.52-1.04) mg/dL POC Glucose (mg/dL) 221 H (75-99) mg/dL Calcium 7.3 L (8.4-10.2) mg/dL Iron (37-170) ug/dL % Saturation (20-50) % Total Protein 5.9 L (6.3-8.2) g/dL Albumin 2.6 L (3.5-5.0) g/dL Crossmatch 04/05/17 04/05/17 04/05/17 Range/Units 05:56 08:22 08:22 RBC 1.88 L (3.80-5.40) m/uL Hgb 6.0 L* (11.4-16.0) gm/dL Hct 19.8 L* (34.0-46.0) % MCV 105.3 H (80.0-100.0) fL MCHC 30.5 L (31.0-37.0) g/dL RDW 18.2 H (11.5-15.5) % Sodium (137-145) mmol/L Carbon Dioxide (22-30) mmol/L BUN (7-17) mg/dL Creatinine (0.52-1.04) mg/dL POC Glucose (mg/dL) 110 H (75-99) mg/dL Calcium (8.4-10.2) mg/dL Iron (37-170) ug/dL % Saturation (20-50) % Total Protein (6.3-8.2) g/dL Albumin (3.5-5.0) g/dL Crossmatch See Detail Assessment and Plan Plan: Assessment: #1. Nonoliguric acute kidney injury secondary to ischemic ATN secondary to acute anemia.. Creatinine peaked at 2.9 this admission and is 2.74 today. Unclear as to what her baseline renal function is. Creatinine was 3.45 from March 2015. No other records are available at this time. #2. Metabolic acidosis secondary to acute kidney injury. #3. Hypokalemia related to poor nutritional status. Magnesium level normal. I don't see any diuretics and her home medications. I don't see evidence of hyper aldosteronism as her blood pressures are on the lower side. #4. Acute anemia with hemoglobin of 5.4 this morning. Severe iron deficiency noted. #5. Chronic kidney disease. Unclear as to what her baseline renal function is. Renal ultrasound reveals 9.1 cm left kidney and a 7 cm left kidney with cortical thinning suggestive of underlying chronic kidney disease. #6. Bilateral pleural effusions. Plan: Patient to receive 1 unit of blood transfusion today. Lasix 40 mg IV once after blood transition. Follow-up ultrasound of the chest and 2-D echocardiogram. Ferillicit 125 mg IV daily for 3 days. First dose today. Maintain oral sodium bicarbonate supplementation. Repeat electrolytes in the morning. Decrease rate of fluids to 40 mL an hour.
[2017-04-05 11:57] LABS: Glucose,Whole Blood 176 mg/dL (75-99)
--- NOTE | 2017-04-05 15:01 | US ---
EXAMINATION TYPE: US chest DATE OF EXAM: 04/05/2017 COMPARISON: CXR 04/03/2017 CLINICAL HISTORY: Left pleural effusion. Pleural effusion EXAM MEASUREMENTS: Left Pleural Effusion fluid pocket: 6.8 cm Left skin to fluid thickness: 3.6 cm Left side marked for possible thoracentesis outside the dept. Pulmonologists are able to review the images in the patient?s EMR. IMPRESSIONS: Left pleural effusion
--- NOTE | 2017-04-05 15:36 | P.PN ---
Subjective Principal diagnosis: Shortness of breath This is a 72-year-old female with history of nicotine dependence, COPD , EtOH use who presented to the hospital with symptoms of progressively worsening shortness of breath and associated palpitations. Chest x-ray revealed left-sided pleural effusion. This will be tapped today for possible thoracentesis. Overall the patient states that she is feeling better. Echocardiogram with Doppler study was performed which revealed an ejection fraction of greater than 70%. Evidence of large pleural effusion no evidence of pericardial effusion. Blood pressure 108/50 with a heart rate in the 80s. Hemoglobin this morning 5.4, patient currently receiving a blood transfusion. Potassium 3.6, BUN 36, creatinine 2.7. Magnesium 1.9 Objective - Vital Signs Vital signs: Vital Signs Temp 98.5 F 04/05/17 13:30 Pulse 85 04/05/17 13:30 Resp 16 04/05/17 13:30 BP 108/55 04/05/17 13:30 Pulse Ox 100 04/05/17 12:00 Intake & Output 04/04/17 04/05/17 04/05/17 18:59 06:59 18:59 Intake Total 1360 1452 Output Total 1000 600 300 Balance 360 -600 1152 Weight 44.9 kg 45.9 kg Intake: Intake, IV Titration 360 160 Amount Sodium Chloride 0.9% 1, 120 000 ml @ 60 mls/hr IV . [id number] DINORAH Rx#:[id number] Water For Injection, 240 160 Sterile 1,000 ml @ 40 mls /hr IV .Q24H DINORAH with Sodium Acetate 150 meq Rx #:[id number] Oral 1000 680 Blood Product 612 Rc Pheresis 2 As3 Unit 310 [id number] Output: Urine 1000 600 300 Other: # Voids 1 - Exam HYSICAL EXAMINATION: HEENT: Head is atraumatic, normocephalic. Pupils equal, round. Neck is supple. There is no elevated jugular venous pressure. HEART EXAMINATION: Heart S1 and S2 systolic murmur is heard. CHEST EXAMINATION: Lungs revealed diminished air entry to the left posteriorly ABDOMEN: Soft, nontender. Bowel sounds are heard. No organomegaly noted. EXTREMITIES: 2+ peripheral pulses with no evidence of peripheral edema and no calf tenderness noted. NEUROLOGIC patient is awake, alert and oriented -3. - Labs CBC & Chem 7: 04/05/17 08:22 04/05/17 05:34 Labs: Abnormal Lab Results - Last 24 Hours (Table) 04/04/17 04/04/17 04/05/17 Range/Units 16:25 21:03 05:34 RBC 1.68 L (3.80-5.40) m/uL Hgb 5.4 L* D (11.4-16.0) gm/dL Hct 17.2 L* (34.0-46.0) % MCV 102.3 H (80.0-100.0) fL MCHC (31.0-37.0) g/dL RDW 18.4 H (11.5-15.5) % Sodium (137-145) mmol/L Carbon Dioxide (22-30) mmol/L BUN (7-17) mg/dL Creatinine (0.52-1.04) mg/dL POC Glucose (mg/dL) 220 H 221 H (75-99) mg/dL Calcium (8.4-10.2) mg/dL Total Protein (6.3-8.2) g/dL Albumin (3.5-5.0) g/dL Crossmatch 04/05/17 04/05/17 04/05/17 Range/Units 05:34 05:56 08:22 RBC 1.88 L (3.80-5.40) m/uL Hgb 6.0 L* (11.4-16.0) gm/dL Hct 19.8 L* (34.0-46.0) % MCV 105.3 H (80.0-100.0) fL MCHC 30.5 L (31.0-37.0) g/dL RDW 18.2 H (11.5-15.5) % Sodium 134 L (137-145) mmol/L Carbon Dioxide 19 L (22-30) mmol/L BUN 36 H (7-17) mg/dL Creatinine 2.74 H (0.52-1.04) mg/dL POC Glucose (mg/dL) 110 H (75-99) mg/dL Calcium 7.3 L (8.4-10.2) mg/dL Total Protein 5.9 L (6.3-8.2) g/dL Albumin 2.6 L (3.5-5.0) g/dL Crossmatch 04/05/17 04/05/17 Range/Units 08:22 11:32 RBC (3.80-5.40) m/uL Hgb (11.4-16.0) gm/dL Hct (34.0-46.0) % MCV (80.0-100.0) fL MCHC (31.0-37.0) g/dL RDW (11.5-15.5) % Sodium (137-145) mmol/L Carbon Dioxide (22-30) mmol/L BUN (7-17) mg/dL Creatinine (0.52-1.04) mg/dL POC Glucose (mg/dL) 176 H (75-99) mg/dL Calcium (8.4-10.2) mg/dL Total Protein (6.3-8.2) g/dL Albumin (3.5-5.0) g/dL Crossmatch See Detail Assessment and Plan Plan: Assessment and plan #1 symptoms of shortness of breath, likely exacerbation of COPD.Large left pleaural effusion. #2 acute on chronic renal failure #3 nicotine dependence #4 history of COPD #5 complaints of intermittent exertional palpitations or with evidence of brief run of supraventricular tachycardia #6 hypokalemia #7 abnormal BNP in the setting of acute renal failure #8 abnormal troponin, not consistent with acute coronary syndrome, likely secondary to acute renal failure. Plan From cardiology's perspective, we will recommend to continue current medications. Patient will undergo an ultrasound of the chest for markings for possible thoracentesis. Further recommendations to follow. DNP note has been reviewed, I agree with a documented findings and plan of care. Patient was seen and examined.
[2017-04-05 17:11] LABS: Glucose,Whole Blood 138 mg/dL (75-99)
[2017-04-05 19:24] LABS: Anisocytosis Moderate; CH 31.4; CHCM 32.6; HCT 24.3 % (34.0-46.0); HDW 3.46; Hypochromasia Slight; MCH 30.1 pg (25.0-35.0); MCHC 30.8 g/dL (31.0-37.0); Macrocytosis Moderate; Poikilocytosis Slight; RBC 2.48 m/uL (3.80-5.40); RDW 21.8 % (11.5-15.5); WBC 9.9 k/uL (3.8-10.6)
[2017-04-05 19:25] LABS: HGB 7.5 gm/dL (11.4-16.0); MCV 97.8 fL (80.0-100.0)
[2017-04-05 21:04] LABS: Glucose,Whole Blood 166 mg/dL (75-99)
[2017-04-06 05:12] LABS: Calcium 7.8 mg/dL (8.4-10.2); Potassium 4.2 mmol/L (3.5-5.1)
[2017-04-06 05:42] LABS: Anisocytosis Moderate; CH 30.9; CHCM 33.9; HDW 3.93; MCHC 34.6 g/dL (31.0-37.0); MCV 92.5 fL (80.0-100.0); Macrocytosis Slight; Mean Platelet Volume 8.6; Poikilocytosis Slight; RBC 3.42 m/uL (3.80-5.40); RDW 21.1 % (11.5-15.5); WBC 13.6 k/uL (3.8-10.6)
[2017-04-06 05:45] LABS: HCT 31.7 % (34.0-46.0); HGB 10.9 gm/dL (11.4-16.0)
[2017-04-06] MEDS: INSULIN LISPRO (humaLOG) 300 UNIT/3 ML VIAL SQ SCH ×4 (05:55→21:14)
[2017-04-06 05:56] LABS: Glucose,Whole Blood 115 mg/dL (75-99)
[2017-04-06] MEDS ORDERED: FUROSEMIDE 10 MG/ML 4 ML VIAL IV STA (06:06)
--- NOTE | 2017-04-06 07:31 | PN ---
A 72-year-old admitted with hypoxemia and hypoxic respiratory failure, multifactorial, including COPD exacerbation, CHF exacerbation and ( ) anemia and elevation of troponin secondary to demand ischemia and patient had ( ) since yesterday. Patient is really cachetic. Patient has pleural effusion for which patient had ( ) ultrasound marked for the thoracocentesis tomorrow. REVIEW OF SYSTEMS: CARDIOVASCULAR: No chest pain, no orthopnea, no PND, no palpitations. PULMONARY: Denied any shortness of breath. No cough or hemoptysis. GASTROINTESTINAL: No diarrhea, nausea or vomiting. No abdominal pain. Normoactive bowel sounds. NEUROLOGIC: No headaches, no weakness, no numbness. Medications were reviewed. PHYSICAL EXAMINATION: VITAL SIGNS: Temperature 97.0, pulse 72, respiratory rate of 18, blood pressure 145/66, saturating at 100% on room air. GENERAL: The patient is thin built, cachectic, alert and oriented x3, not in respiratory distress. HEENT: Pupils are round and equally reacting to light. EOMI. No scleral icterus. No conjunctival pallor. Normocephalic, atraumatic. No pharyngeal erythema. No thyromegaly. CARDIOVASCULAR: Improved JVD. PULMONARY: Patient has fairly good air entry into bilateral lung rosales today. Absent breath sounds and ( ) dullness in the left posterior inferior lung rosales. There is barely any air entry into that area. ABDOMEN: Soft, nontender, nondistended, normoactive bowel sounds. No palpable organomegaly. MUSCULOSKELETAL: No joint swelling or deformity. EXTREMITIES: No cyanosis, clubbing, or pedal edema. NEUROLOGICAL: Gross neurological examination did not reveal any focal deficits. SKIN: No rashes. LABORATORY DATA: CBC, CMP are abnormal for low hemoglobin of 6.0 after one unit transfusion, will transfuse one more unit. Sodium of 134. Patient does have an anion gap metabolic acidosis, BUN of 36, creatinine of 2.74. ASSESSMENT AND PLAN: 1. Acute hypoxic respiratory failure, multifactorial secondary to left-sided pleural effusion, ( ) tomorrow. 2. Congestive heart failure exacerbation for which patient was given Lasix today which was discontinued because of kidney dysfunction, although patient will receive one more unit of blood and ( ). We will give one more dose of Lasix. 3. The patient was treated for chronic obstructive pulmonary disease exacerbation as well. 4. Anemia, symptomatic anemia. B12 levels within normal limits. The patient appears to have ( ), need ( ) supplementation. At this point, will give her blood transfusion as mentioned abo e. 5. Metabolic acidosis secondary to hyperchloremia and kidney disease. 6. Elevated troponin secondary to renal dysfunction, noncardiac and demand ischemia. 7. Chest pain is secondary to gastritis. Continue with proton pump inhibitors. 8. Hypokalemia. Will supplement potassium. Secondary to poor nutritional status. 9. Chronic obstructive pulmonary disease with acute exacerbation. Continue with systemic steroids and inhalational treatments. 10. Right side pleural effusion, may be related to heart failure. 11. Congestive heart failure, chronic diastolic dysfunction with acute exacerbation. Echocardiogram showed normal ejection fraction, actually hyperdynamic circulation and severe concentric left ventricular hypertrophy; moderate to severe aortic regurgitation. 12. Acute kidney injury secondary to possible congestive heart failure. Patient received Lasix and that is being managed from Nephrology. Although will give Lasix ( ) blood transfusion.
[2017-04-06] MEDS: SODIUM BICARBONATE TAB 650 MG TAB PO SCH ×2 (08:27→20:20)
[2017-04-06] MEDS: predniSONE 20 MG TAB PO SCH (08:27)
[2017-04-06] MEDS: VERAPAMIL 40 MG TAB PO SCH ×3 (08:27→20:23)
[2017-04-06] MEDS: NICOTINE 21MG/24HR PATCH TRANSDERM SCH ×2 (08:27→08:37)
[2017-04-06] MEDS: IPRATROPIUM-ALBUTEROL 3 ML NEB INHALATION SCH ×4 (09:01→20:29)
--- NOTE | 2017-04-06 09:41 | CDI ---
In responding to this query, please exercise your independent professional judgment. The [facility] Coding Staff and Clinical Documentation Specialists appreciate your assistance in clarifying documentation, maintaining compliance with coding guidelines, accurately documenting patients condition and capturing severity of illness. The fact that a question is asked does not imply that any particular answer is desired or expected. Communication forms are a method of clarifying documentation and are not made part of the Legal Health Record. Thank you in advance for your clarification. Last Revision, August 2015 [employer] [address] [address] Documentation Clarification Form Date: 04/06/2017 9:25:00 AM From: Sheridan Quevedo RN, CDS Admit Date: 04/03/2017 2:48:00 PM Patient Name: Penelope Hartmann Visit Number: [id number] Dr. Colin Lopez, 72 year old patient presented with complaints of shortness of breath with exertion, cough and congestion. Admitting diagnoses Acute Respiratory Failure and Acute Exacerbation of Diastolic CHF. . History/Risk Factors: COPD, Blood Clots, CHF, Clinical Indicators: BMI: 17.0, Per Dietitian Consult "involuntary weight loss of 24%, muscle wasting, underweight", Albumin 3.1 and 2.6 Total Protein 5.9 , Loss of muscle mass: Yes Treatment: Dietitian consult, Ensure Enlive supplement TID In your professional opinion, can you please clarify if these findings signify one of the following conditions? Mild Protein-Calorie Malnutrition Moderate Protein-Calorie Malnutrition Severe Protein-Calorie Malnutrition Other condition, please specify Unable to determine Please document in your progress notes and discharge summary in order to capture severity of illness and risk of mortality. Include clinical findings that support your diagnosis. FYI: Press F11 to launch patient chart. Place X here if this finding has no clinical significance, is not applicable or if you are not able to provide any additional documentation. MTDD
[2017-04-06 11:27] VITALS: BMI 18.3
[2017-04-06 12:27] LABS: Glucose,Whole Blood 145 mg/dL (75-99)
--- NOTE | 2017-04-06 12:40 | P.PN ---
Subjective Patient is seen in follow-up for acute kidney injury on chronic kidney disease. Creatinine peaked at 2.9 yesterday and is 2.63 today. Unclear as to what her baseline renal function is. Patient presented with dyspnea. She is noted to have bilateral pleural effusions. Her oral intake is good. Hemoglobin was noted to be 5.4 on 04/05 for which she did receive blood transfusions. Hemoglobin 10.9 this morning. Denies any melena or hematochezia. No hemoptysis. No vomiting or diarrhea. Oral intake is improving. Vital signs are stable. General: The patient appeared well nourished and normally developed. HEENT: Head exam is unremarkable. Neck is without jugular venous distension. LUNGS: Lungs are clear to auscultation and percussion. Breath sounds decreased. HEART: Rate and Rhythm are regular. First and second heart sounds normal. No murmurs, rubs or gallops. ABDOMEN: Abdominal exam reveals normal bowel sounds. Non-tender and non- distended. No evidence of peritonitis. EXTREMITITES: No clubbing, cyanosis, or edema. Objective - Vital Signs Vital signs: Vital Signs Temp 98.3 F 04/06/17 11:20 Pulse 93 04/06/17 11:20 Resp 18 04/06/17 11:20 BP 114/56 04/06/17 11:20 Pulse Ox 100 04/06/17 11:20 Intake & Output 04/05/17 04/06/17 04/06/17 18:59 06:59 18:59 Intake Total 1452 710 Output Total 300 1000 875 Balance 1152 290 -875 Weight 48.5 kg 48.5 kg Intake: IV 400 Water For Injection, 400 Sterile 1,000 ml @ 40 mls /hr IV .Q24H DINORAH with Sodium Acetate 150 meq Rx #:[id number] Intake, IV Titration 160 Amount Water For Injection, 160 Sterile 1,000 ml @ 40 mls /hr IV .Q24H DINORAH with Sodium Acetate 150 meq Rx #:[id number] Oral 680 Blood Product 612 310 Rc Pheresis 2 As3 Unit 310 [id number] Rc Pheresis 2 As3 Unit 310 [id number] Output: Urine 300 1000 875 Other: Voiding Method Bedside Commode Bedside Commode Bedpan # Voids 1 4 # Bowel Movements 1 - Labs CBC & Chem 7: 04/06/17 04:48 04/06/17 04:48 Labs: Abnormal Lab Results - Last 24 Hours (Table) 04/05/17 04/05/17 04/05/17 Range/Units 08:22 17:09 18:56 WBC (3.8-10.6) k/uL RBC 2.48 L (3.80-5.40) m/uL Hgb 7.5 L D (11.4-16.0) gm/dL Hct 24.3 L (34.0-46.0) % MCHC 30.8 L (31.0-37.0) g/dL RDW 21.8 H (11.5-15.5) % Sodium (137-145) mmol/L BUN (7-17) mg/dL Creatinine (0.52-1.04) mg/dL Glucose (74-99) mg/dL POC Glucose (mg/dL) 138 H (75-99) mg/dL Calcium (8.4-10.2) mg/dL Crossmatch See Detail 04/05/17 04/06/17 04/06/17 Range/Units 21:03 04:48 04:48 WBC 13.6 H (3.8-10.6) k/uL RBC 3.42 L (3.80-5.40) m/uL Hgb 10.9 L D (11.4-16.0) gm/dL Hct 31.7 L (34.0-46.0) % MCHC (31.0-37.0) g/dL RDW 21.1 H (11.5-15.5) % Sodium 136 L (137-145) mmol/L BUN 46 H (7-17) mg/dL Creatinine 2.63 H (0.52-1.04) mg/dL Glucose 119 H (74-99) mg/dL POC Glucose (mg/dL) 166 H (75-99) mg/dL Calcium 7.8 L (8.4-10.2) mg/dL Crossmatch 04/06/17 04/06/17 Range/Units 05:55 11:41 WBC (3.8-10.6) k/uL RBC (3.80-5.40) m/uL Hgb (11.4-16.0) gm/dL Hct (34.0-46.0) % MCHC (31.0-37.0) g/dL RDW (11.5-15.5) % Sodium (137-145) mmol/L BUN (7-17) mg/dL Creatinine (0.52-1.04) mg/dL Glucose (74-99) mg/dL POC Glucose (mg/dL) 115 H 145 H (75-99) mg/dL Calcium (8.4-10.2) mg/dL Crossmatch Assessment and Plan Plan: Assessment: #1. Nonoliguric acute kidney injury secondary to ischemic ATN secondary to acute anemia.. Creatinine peaked at 2.9 this admission and is 2.63 today. Unclear as to what her baseline renal function is. Creatinine was 3.45 from March 2015. No other records are available at this time. #2. Metabolic acidosis secondary to acute kidney injury. Improving. #3. Hypokalemia related to poor nutritional status. Magnesium level normal. I don't see any diuretics and her home medications. I don't see evidence of hyper aldosteronism as her blood pressures are on the lower side. #4. Acute anemia with hemoglobin of 5.4 on April 05 that is post blood transfusions. Hemoglobin 10.9 this morning. #5. Chronic kidney disease. Unclear as to what her baseline renal function is. Renal ultrasound reveals 9.1 cm left kidney and a 7 cm left kidney with cortical thinning suggestive of underlying chronic kidney disease. #6. Bilateral pleural effusions. Plan: Hep-Lock IV fluids. Lasix 40 mg IV once today. Potential thoracentesis today. Ferillicit 125 mg IV daily for 3 days. Second dose today. Maintain oral sodium bicarbonate supplementation. Repeat electrolytes in the morning.
[2017-04-06] MEDS: WATER FOR INJECTION, STERILE 1,000 ML with SODIUM ACETATE 150 MEQ IV SCH ×2 (12:51)
--- NOTE | 2017-04-06 14:30 | XR ---
EXAMINATION TYPE: XR chest 1V portable DATE OF EXAM: 04/06/2017 COMPARISON: NONE INDICATION: Left postthoracentesis TECHNIQUE: Single frontal view of the chest is obtained. FINDINGS: The heart size is normal. The pulmonary vasculature is normal. Minimal subsegmental atelectasis right base may be present. Small amount of fluid is present at the l eft base. Vascular calcifications at the aortic arch. There is a left pneumothorax estimated at 25% the apex. IMPRESSION: 1. Left apical pneumothorax estimated at 25%. 2. alberto William nurse and Ms Saadia NP, notified by telephone [address] Ybarra
[2017-04-06 14:54] LABS: Total Protein 7.2 g/dL (6.3-8.2)
--- NOTE | 2017-04-06 16:04 | P.PN ---
Subjective Principal diagnosis: Shortness of breath This is a 72-year-old female with history of nicotine dependence, COPD , EtOH use who presented to the hospital with symptoms of progressively worsening shortness of breath and associated palpitations. Chest x-ray revealed left-sided pleural effusion. This will be tapped today for possible thoracentesis. Overall the patient states that she is feeling better. Echocardiogram with Doppler study was performed which revealed an ejection fraction of greater than 70%. Underwent a thoracentesis today. Overall feeling much better. Objective - Vital Signs Vital signs: Vital Signs Temp 98.3 F 04/06/17 11:20 Pulse 92 04/06/17 12:59 Resp 18 04/06/17 11:20 BP 114/56 04/06/17 11:20 Pulse Ox 100 04/06/17 11:20 Intake & Output 04/05/17 04/06/17 04/06/17 18:59 06:59 18:59 Intake Total 1452 710 417 Output Total 300 1000 875 Balance 1152 -290 -458 Weight 48.5 kg 48.5 kg Intake: IV 400 Water For Injection, 400 Sterile 1,000 ml @ 40 mls /hr IV .Q24H DINORAH with Sodium Acetate 150 meq Rx #:[id number] Intake, IV Titration 160 Amount Water For Injection, 160 Sterile 1,000 ml @ 40 mls /hr IV .Q24H DINORAH with Sodium Acetate 150 meq Rx #:[id number] Oral 680 417 Blood Product 612 310 Rc Pheresis 2 As3 Unit 310 [id number] Rc Pheresis 2 As3 Unit 310 [id number] Output: Urine 300 1000 875 Other: Voiding Method Bedside Commode Bedside Commode Bedpan # Voids 1 4 # Bowel Movements 1 - Exam HYSICAL EXAMINATION: HEENT: Head is atraumatic, normocephalic. Pupils equal, round. Neck is supple. There is no elevated jugular venous pressure. HEART EXAMINATION: Heart S1 and S2 systolic murmur is heard. CHEST EXAMINATION: Lungs revealed improvement in air entry to the left posteriorly ABDOMEN: Soft, nontender. Bowel sounds are heard. No organomegaly noted. EXTREMITIES: 2+ peripheral pulses with no evidence of peripheral edema and no calf tenderness noted. NEUROLOGIC patient is awake, alert and oriented -3. - Labs CBC & Chem 7: 04/06/17 04:48 04/06/17 04:48 Labs: Abnormal Lab Results - Last 24 Hours (Table) 04/05/17 04/05/17 04/05/17 Range/Units 08:22 17:09 18:56 WBC (3.8-10.6) k/uL RBC 2.48 L (3.80-5.40) m/uL Hgb 7.5 L D (11.4-16.0) gm/dL Hct 24.3 L (34.0-46.0) % MCHC 30.8 L (31.0-37.0) g/dL RDW 21.8 H (11.5-15.5) % Sodium (137-145) mmol/L BUN (7-17) mg/dL Creatinine (0.52-1.04) mg/dL Glucose (74-99) mg/dL POC Glucose (mg/dL) 138 H (75-99) mg/dL Calcium (8.4-10.2) mg/dL Crossmatch See Detail 04/05/17 04/06/17 04/06/17 Range/Units 21:03 04:48 04:48 WBC 13.6 H (3.8-10.6) k/uL RBC 3.42 L (3.80-5.40) m/uL Hgb 10.9 L D (11.4-16.0) gm/dL Hct 31.7 L (34.0-46.0) % MCHC (31.0-37.0) g/dL RDW 21.1 H (11.5-15.5) % Sodium 136 L (137-145) mmol/L BUN 46 H (7-17) mg/dL Creatinine 2.63 H (0.52-1.04) mg/dL Glucose 119 H (74-99) mg/dL POC Glucose (mg/dL) 166 H (75-99) mg/dL Calcium 7.8 L (8.4-10.2) mg/dL Crossmatch 04/06/17 04/06/17 Range/Units 05:55 11:41 WBC (3.8-10.6) k/uL RBC (3.80-5.40) m/uL Hgb (11.4-16.0) gm/dL Hct (34.0-46.0) % MCHC (31.0-37.0) g/dL RDW (11.5-15.5) % Sodium (137-145) mmol/L BUN (7-17) mg/dL Creatinine (0.52-1.04) mg/dL Glucose (74-99) mg/dL POC Glucose (mg/dL) 115 H 145 H (75-99) mg/dL Calcium (8.4-10.2) mg/dL Crossmatch Assessment and Plan Plan: Assessment and plan #1 symptoms of shortness of breath, likely exacerbation of COPD.Large left pleaural effusion. S/p thoracentesis #2 acute on chronic renal failure #3 nicotine dependence #4 history of COPD #5 complaints of intermittent exertional palpitations or with evidence of brief run of supraventricular tachycardia #6 hypokalemia #7 abnormal BNP in the setting of acute renal failure #8 abnormal troponin, not consistent with acute coronary syndrome, likely secondary to acute renal failure. Plan From cardiology's perspective, we will continue current occasions. Await pathology report of pleural fluid. DNP note has been reviewed, I agree with a documented findings and plan of care. Patient was seen and examined.
[2017-04-06 16:55] LABS: Glucose,Whole Blood 136 mg/dL (75-99)
[2017-04-06 17:08] LABS: RBC, Body Fluid 1450 /uL
--- NOTE | 2017-04-06 17:50 | PN ---
This patient is a 72-year-old female whom I saw yesterday in consultation for shortness of breath. The patient was found to have a left pleural effusion. She does have a history of underlying COPD. Today we did a thoracentesis on the left side. We removed roughly 600 mL of yellowish fluid from the left pleural space. She tolerated the procedure well. The fluid will be sent for analysis, including microbiology, cytology and chemistry. Again, the patient tolerated the procedure well. She has a history of underlying COPD as well as DJD. Currently her vital signs are stable. Temperature 98.3, heart rate 83, respiratory rate 18, blood pressure 114/56, mean 75, 3-liter saturations 100%. Appears in no acute distress. HEENT examination is grossly unremarkable. Mucous membranes are moist. No oral lesions. NECK: Supple. Full range of motion. No adenopathy or thyromegaly. Cardiovascular examination reveals regular rhythm and rate. S1, S2 normal. No distinct murmur. Lungs reveal diminished breath sounds on the left, dullness at the left base. No wheezes or rhonchi. No crackles. Breath sounds are diminished. ABDOMEN: Soft. Bowel sounds are heard. EXTREMITIES: Intact. No cyanosis, clubbing or edema. SKIN: Without rash. Neurologic examination is nonfocal. Labs are reviewed. White count 13.6, hemoglobin 10.9, hematocrit 31.7, platelet count 259,000. Sodium 136. Potassium, chloride and CO2 all normal. BUN and creatinine were 46 and 2.63, calcium 7.8. Chest x-ray was reviewed. Ultrasound was reviewed. Microbiology is negative. Medications and orders were reviewed yesterday. ASSESSMENT: 1. Chronic obstructive pulmonary disease, mildly active. 2. Heart failure. 3. Left pleural effusion. 4. Anemia. 5. Chronic kidney disease. 6. Ongoing tobacco use. PLAN: The fluid was drained; 600 mL was removed. There was no immediate complication. The patient will have a chest x-ray. Fluid will be sent for analysis, including cytology, microbiology and chemistry. Additional recommendations and suggestions are forthcoming. Will continue to follow.
--- NOTE | 2017-04-06 20:55 | PN ---
This patient is a 72-year-old who has multifactorial hypoxic respiratory failure secondary to COPD exacerbation, CHF exacerbation and severe anemia along with pleural effusion on the left side, for which patient will undergo thoracocentesis. Patient probably can be discharged to subacute rehabilitation tomorrow. REVIEW OF SYSTEMS: CARDIOVASCULAR: No chest pain, no orthopnea, no PND, no palpitations. PULMONARY: Significantly ( ) shortness of breath. GASTROINTESTINAL: No diarrhea, nausea or vomiting. No abdominal pain. Normoactive bowel sounds. NEUROLOGIC: No headaches, no weakness, no numbness. Medications were reviewed. PHYSICAL EXAMINATION: VITAL SIGNS: Temperature 98.3, pulse of 92, respiratory rate of 18. Blood pressure is 114/56. Saturating at 100% on 3 L of oxygen by nasal cannula. Her oxygen can be tapered down. GENERAL: Patient has thin build. She is cachectic. Alert and oriented x3. HEENT: Pupils are round and equally reacting to light. EOMI. No scleral icterus. No conjunctival pallor. Normocephalic, atraumatic. No pharyngeal erythema. No thyromegaly. CARDIOVASCULAR: S1 and S2 present. No murmurs, rubs, or gallops. PULMONARY: Significantly improved air entry into bilateral lung rosales, although patient has ( ) absent breath sounds on the left inferior posterior lung rosales. ABDOMEN: Soft, nontender, nondistended, normoactive bowel sounds. No palpable organomegaly. MUSCULOSKELETAL: No joint swelling or deformity. EXTREMITIES: No cyanosis, clubbing, or pedal edema. NEUROLOGICAL: Gross neurological examination did not reveal any focal deficits. SKIN: No rashes. LABORATORY DATA: CBC and CMP are abnormal for elevated WBC count of 13,600. This leukocytosis is secondary to systemic steroids. ASSESSMENT AND PLAN: 1. Acute hypoxic respiratory failure, multifactorial, as mentioned above. Patient will undergo thoracocentesis. 2. Left-sided pleural effusion. Etiology of pleural effusion is not clear at this point of time. Can be related to congestive heart failure, chronic diastolic dysfunction, with acute exacerbation. 3. Congestive heart failure, chronic diastolic dysfunction, with acute exacerbation. 4. Chronic obstructive pulmonary disease with minimal exacerbation, which improved. 5. Iron deficiency anemia with a component of folate deficiency. Upon discharge, patient needs to be discharged on iron supplementation. She received 2 units of blood transfusion. 6. Metabolic acidosis secondary to hyperchloremia and kidney disease. Patient received IV Lasix as well. 7. Elevated troponin secondary to renal dysfunction. 8. Gastritis. 9. Hypokalemia. 10. Acute kidney injury with possibility of chronic kidney disease; unable to state CKD at this time. Acute kidney injury is secondary to prerenal azotemia from congestive heart failure, for which patient is receiving Lasix, as mentioned above.
[2017-04-06 21:20] LABS: Glucose,Whole Blood 190 mg/dL (75-99)
[2017-04-07 01:22] LABS: Glucose, BF Source Pleural Fluid
[2017-04-07 06:28] LABS: Calcium 7.5 mg/dL (8.4-10.2); Potassium 3.9 mmol/L (3.5-5.1)
[2017-04-07 06:37] LABS: Glucose,Whole Blood 103 mg/dL (75-99)
[2017-04-07] MEDS: INSULIN LISPRO (humaLOG) 300 UNIT/3 ML VIAL SQ SCH ×2 (06:38→11:34)
[2017-04-07] MEDS: IPRATROPIUM-ALBUTEROL 3 ML NEB INHALATION SCH ×3 (07:45→16:14)
--- NOTE | 2017-04-07 08:07 | XR ---
EXAMINATION TYPE: XR chest 1V portable DATE OF EXAM: 04/07/2017 HISTORY: recheck Pneumothorax . REFERENCE: Previous study dated 04/06/2017. FINDINGS: There continues to be a left apical pneumothorax of approximately 20-30% by volume. There i s a stable left basilar infiltrate. There is also some increased opacity in the right lung base. The lungs are overinflated. I suspect small effusions, greater on the left than the right. IMPRESSION: STABLE LEFT-SIDED PNEUMOTHORAX.
[2017-04-07] MEDS: NICOTINE 21MG/24HR PATCH TRANSDERM SCH (08:58)
[2017-04-07] MEDS: VERAPAMIL 40 MG TAB PO SCH (08:59)
[2017-04-07] MEDS: SODIUM BICARBONATE TAB 650 MG TAB PO SCH (08:59)
[2017-04-07] MEDS ORDERED: SODIUM FERRIC GLUCONAT-SUCROSE 125 MG in SODIUM CHLORIDE 0.9% 100 ML IVPB SCH (09:00)
[2017-04-07] MEDS: predniSONE 20 MG TAB PO SCH (09:01)
--- NOTE | 2017-04-07 09:54 | PCN ---
DATE OF PROCEDURE: 04/06/2017 PROCEDURE: Left-sided thoracentesis. PREOPERATIVE DIAGNOSIS: Left pleural effusion. POSTOPERATIVE DIAGNOSIS: Left pleural effusion. DESCRIPTION OF PROCEDURE: A time-out was completed verifying correct patient, procedure, site, positioning, and implant (s) or special equipment if applicable. Ultrasound guidance was used and appropriate fluid pocket was identified and marked. Patient was positioned, prepped and draped in usual sterile fashion. Lidocaine was used to anesthetize the area. A Thoracentesis catheter was introduced into the pleural space and fluid was removed. Blood loss was none. A chest x-ray was ordered to evaluate for pneumothorax. Total Fluid Removed: 600 mL from left pleural space. Color of Fluid: Yellowish. Fluid was sent for appropriate laboratory tests including microbiology, cytology and chemistry. Patient tolerated the procedure well and there were no immediate complications.
[2017-04-07 10:16] VITALS: RESP 18
--- NOTE | 2017-04-07 11:25 | P.PN ---
Subjective Patient is seen in follow-up for acute kidney injury on chronic kidney disease. Creatinine peaked at 2.9 yesterday and is 2.62 today. Unclear as to what her baseline renal function is. Patient presented with dyspnea. She is noted to have bilateral pleural effusions. She underwent thoracentesis yesterday with 600 mL drained. Her oral intake is good. Hemoglobin was noted to be 5.4 on for which she did receive blood transfusions. Hemoglobin 10.9 as of yesterday. Denies any melena or hematochezia. No hemoptysis. No vomiting or diarrhea. Oral intake is improving. Denies any active chest pain or shortness of breath. Vital signs are stable. General: The patient appeared well nourished and normally developed. HEENT: Head exam is unremarkable. Neck is without jugular venous distension. LUNGS: Lungs are clear to auscultation and percussion. Breath sounds decreased. HEART: Rate and Rhythm are regular. First and second heart sounds normal. No murmurs, rubs or gallops. ABDOMEN: Abdominal exam reveals normal bowel sounds. Non-tender and non- distended. No evidence of peritonitis. EXTREMITITES: No clubbing, cyanosis, or edema. Objective - Vital Signs Vital signs: Vital Signs Temp 97.9 F 04/07/17 08:00 Pulse 84 04/07/17 08:02 Resp 18 04/07/17 08:00 BP 150/68 04/07/17 08:00 Pulse Ox 98 04/07/17 08:00 Intake & Output 04/06/17 04/07/17 04/07/17 18:59 06:59 18:59 Intake Total 654 237 Output Total 1550 350 Balance -896 -350 237 Weight 48.5 kg 46 kg Intake: Oral 654 237 Output: Urine 1550 350 Other: Voiding Method Bedside Commode Bedside Commode Bedside Commode Bedpan # Voids 4 1 - Labs CBC & Chem 7: 04/06/17 04:48 04/07/17 05:55 Labs: Abnormal Lab Results - Last 24 Hours (Table) 04/06/17 04/06/17 04/06/17 Range/Units 11:41 16:46 21:04 Sodium (137-145) mmol/L BUN (7-17) mg/dL Creatinine (0.52-1.04) mg/dL POC Glucose (mg/dL) 145 H 136 H 190 H (75-99) mg/dL Calcium (8.4-10.2) mg/dL 04/07/17 04/07/17 Range/Units 05:55 06:33 Sodium 136 L (137-145) mmol/L BUN 58 H (7-17) mg/dL Creatinine 2.62 H (0.52-1.04) mg/dL POC Glucose (mg/dL) 103 H (75-99) mg/dL Calcium 7.5 L (8.4-10.2) mg/dL Microbiology - Last 24 Hours (Table) 04/06/17 14:00 Gram Stain - Preliminary Pleural Fluid Body Fluid Culture - Preliminary 04/06/17 14:00 Anaerobic Culture - Preliminary Pleural Fluid Assessment and Plan Plan: Assessment: #1. Nonoliguric acute kidney injury secondary to ischemic ATN secondary to acute anemia. Creatinine peaked at 2.9 this admission and is 2.62 today. Unclear as to what her baseline renal function is. Creatinine was 3.45 from March 2015. No other records are available at this time. #2. Metabolic acidosis secondary to acute kidney injury. Improving. #3. Hypokalemia related to poor nutritional status. Magnesium level normal. I don't see any diuretics and her home medications. I don't see evidence of hyper aldosteronism as her blood pressures are on the lower side. #4. Acute anemia with hemoglobin of 5.4 on April 05 that is post blood transfusions. Hemoglobin 10.9 as of yesterday. #5. Chronic kidney disease. Unclear as to what her baseline renal function is. Renal ultrasound reveals 9.1 cm left kidney and a 7 cm left kidney with cortical thinning suggestive of underlying chronic kidney disease. #6. Bilateral pleural effusions status post thoracentesis on April 06 with 600 mL drained. Plan: Remains off IV fluids. Ferillicit 125 mg IV daily for 3 days. Third dose today. Maintain oral sodium bicarbonate supplementation. Encourage oral intake. Avoid nephrotoxic agents and hypotensive episodes. Repeat electrolytes in the morning.
[2017-04-07 11:34] LABS: Glucose,Whole Blood 183 mg/dL (75-99)
--- NOTE | 2017-04-07 11:56 | P.PN ---
Subjective Progress note dated 04/07/2017 72-year-old female with history of shortness of breath. She was found to have a large left-sided pleural effusion. We did a thoracentesis on the left side. 600 mL was removed. She did feel better. Unfortunately, she did develop a small left-sided pneumothorax about 20%. Today's chest x-ray shows a similar sized left pneumothorax. She is feeling better though. Much less short of breath. The fluid was sent for analysis including cytology microbiology and chemistry. She likes and she would like to go home. Apparently that may be not the case. Apparently kidney function is impaired a bit and she may have to stay till Monday. This was told to us by the nurse there. From the pulmonary standpoint doing better. We are to check a room air resting saturation. Objective - Vital Signs Vital signs: Vital Signs Temp 97.9 F 04/07/17 08:00 Pulse 84 04/07/17 08:02 Resp 18 04/07/17 08:00 BP 150/68 04/07/17 08:00 Pulse Ox 98 04/07/17 08:00 Intake & Output 04/06/17 04/07/17 04/07/17 18:59 06:59 18:59 Intake Total 654 237 Output Total 1550 350 Balance -896 -350 237 Weight 48.5 kg 46 kg Intake: Oral 654 237 Output: Urine 1550 350 Other: Voiding Method Bedside Commode Bedside Commode Bedside Commode Bedpan # Voids 4 1 - Exam No acute distress, oriented 3. No respiratory distress. He is wearing nasal O2 2 L. HEENT examination is grossly unremarkable. Mucous membranes are moist. No oral lesions. Neck supple. Full range of motion. No adenopathy or thyromegaly. Neck veins are flat. Cardiovascular examination reveals regular rhythm rate. S1-S2 normal. No murmur. Lungs reveal mostly clear breath sounds. Some dullness to percussion at the left base. Breath sounds are slightly diminished at the left base. No wheezes. No crackles. Abdomen soft bowel sounds are heard. Extremities are intact. No cyanosis clubbing or edema. Skin without rash. - Labs CBC & Chem 7: 04/06/17 04:48 04/07/17 05:55 Labs: Abnormal Lab Results - Last 24 Hours (Table) 04/06/17 04/06/1704/06/17 Range/Units 11:41 16:46 21:04 Sodium (137-145) mmol/L BUN (7-17) mg/dL Creatinine (0.52-1.04) mg/dL POC Glucose (mg/dL) 145 H 136 H 190 H (75-99) mg/dL Calcium (8.4-10.2) mg/dL 04/07/17 04/07/17 04/07/17 Range/Units 05:55 06:33 11:32 Sodium 136 L (137-145) mmol/L BUN 58 H (7-17) mg/dL Creatinine 2.62 H (0.52-1.04) mg/dL POC Glucose (mg/dL) 103 H 183 H (75-99) mg/dL Calcium 7.5 L (8.4-10.2) mg/dL Microbiology - Last 24 Hours (Table) 04/06/17 14:00 Gram Stain - Preliminary Pleural Fluid Body Fluid Culture - Preliminary 04/06/17 14:00 Anaerobic Culture - Preliminary Pleural Fluid Assessment and Plan (1) COPD (chronic obstructive pulmonary disease) Status: Acute (2) CHF (congestive heart failure) Status: Acute (3) Pleural effusion Status: Acute (4) Anemia Status: Acute (5) Pneumothorax Status: Acute Plan: Plan dated 04/05/2017 The patient will have an ultrasound done of the left chest. If there is enough fluid to be drained, we'll attempt that. We'll also make sure she is on any antiplatelet drugs or blood thinners which might preclude us from doing the procedure. Mild thickening consent. Additional recommendations and suggestions are forthcoming. Plan dated 04/07/2017 The patient's chest x-ray shows a stable left-sided pneumothorax. His by 20%. She's not having any respiratory distress whatsoever. I asked the nurse to take the oxygen off and check her room air resting saturation. She may or may not be discharged in next day or so. Apparently there are some declining kidney function and make keep her here in the hospital. She looks well though. She wanted to go home. Was not taking any medications at home. We'll continue to follow closely. We'll get a morning chest x-ray. Time with Patient: Less than 30
[2017-04-07 12:42] VITALS: BP 115/61; PULSE 90; TEMP 98.2
--- NOTE | 2017-04-07 14:27 | P.PN ---
Subjective Principal diagnosis: Shortness of breath This is a 72-year-old female with history of nicotine dependence, COPD , EtOH use who presented to the hospital with symptoms of progressively worsening shortness of breath and associated palpitations. Chest x-ray revealed left-sided pleural effusion. Patient underwent a thoracentesis, pathology pending. Echocardiogram with Doppler study was performed which revealed an ejection fraction of greater than 70%. Overall feeling much better. Objective - Vital Signs Vital signs: Vital Signs Temp 98.2 F 04/07/17 12:00 Pulse 90 04/07/17 12:00 Resp 18 04/07/17 12:00 BP 115/61 04/07/17 12:00 Pulse Ox 95 04/07/17 12:00 Intake & Output 04/06/17 04/07/17 04/07/17 18:59 06:59 18:59 Intake Total 654 417 Output Total 1550 350 Balance -896 -350 417 Weight 48.5 kg 46 kg Intake: Oral 654 417 Output: Urine 1550 350 Other: Voiding Method Bedside Commode Bedside Commode Bedside Commode Bedpan # Voids 4 1 2 - Exam HYSICAL EXAMINATION: HEENT: Head is atraumatic, normocephalic. Pupils equal, round. Neck is supple. There is no elevated jugular venous pressure. HEART EXAMINATION: Heart S1 and S2 systolic murmur is heard. CHEST EXAMINATION: Lungs revealed improvement in air entry to the left posteriorly ABDOMEN: Soft, nontender. Bowel sounds are heard. No organomegaly noted. EXTREMITIES: 2+ peripheral pulses with no evidence of peripheral edema and no calf tenderness noted. NEUROLOGIC patient is awake, alert and oriented -3. - Labs CBC & Chem 7: 04/06/17 04:48 04/07/17 05:55 Labs: Abnormal Lab Results - Last 24 Hours (Table) 04/06/17 04/06/17 04/07/17 Range/Units 16:46 21:04 05:55 Sodium 136 L (137-145) mmol/L BUN 58 H (7-17) mg/dL Creatinine 2.62 H (0.52-1.04) mg/dL POC Glucose (mg/dL) 136 H 190 H (75-99) mg/dL Calcium 7.5 L (8.4-10.2) mg/dL 04/07/17 04/07/17 Range/Units 06:33 11:32 Sodium (137-145) mmol/L BUN (7-17) mg/dL Creatinine (0.52-1.04) mg/dL POC Glucose (mg/dL) 103 H 183 H (75-99) mg/dL Calcium (8.4-10.2) mg/dL Microbiology - Last 24 Hours (Table) 04/06/17 14:00 Gram Stain - Preliminary Pleural Fluid Body Fluid Culture - Preliminary 04/06/17 14:00 Anaerobic Culture - Preliminary Pleural Fluid Assessment and Plan Plan: Assessment and plan #1 symptoms of shortness of breath, likely exacerbation of COPD.Large left pleaural effusion. S/p thoracentesis #2 acute on chronic renal failure #3 nicotine dependence #4 history of COPD #5 complaints of intermittent exertional palpitations or with evidence of brief run of supraventricular tachycardia #6 hypokalemia #7 abnormal BNP in the setting of acute renal failure #8 abnormal troponin, not consistent with acute coronary syndrome, likely secondary to acute renal failure. Plan From cardiology's perspective, patient may be discharged once cleared by the primary. We will follow her with you now on an as-needed basis only, please don 't hesitate to call with any questions. DNP note has been reviewed, I agree with a documented findings and plan of care. Patient was seen and examined.
--- NOTE | 2017-04-09 08:38 | DS ---
DATE OF ADMISSION: 04/03/2017 DATE OF DISCHARGE: 04/07/2017 CONSULTATIONs: 1. Pulmonary. 2. Nephrology. 3. Cardiology.. DISCHARGE DIAGNOSES: 1. Acute hypoxic respiratory failure secondary to multifactorial ( ), exacerbation, pleural effusion and history congestive heart failure exacerbation. 2. Left-sided pleural effusion, status post thoracentesis. No malignant cells have been found in the pleural fluid. Possibly due to congestive heart failure. 3. Acute on chronic congestive heart failure with diastolic dysfunction. 4. Acute chronic obstructive pulmonary disease exacerbation, improved. 5. Iron deficiency anemia with component of folate deficiency. Patient was given IV iron x3 and will be discharged on iron supplementation. Patient also received 2 units of blood transfusion. 6. Metabolic acidosis secondary to chronic kidney disease. 7. Troponin level secondary to acute kidney injury, unlikely acute ACS at this time. 8. Gastritis. 9. Hypokalemia. 10. Acute kidney injury, most likely prerenal azotemia. Currently, creatinine was 2.62, stable at this time. 11. Hypokalemia secondary to poor nutritional status. 12. Normocytic anemia with hemoglobin of 5.4 on admission, status post blood transfusion of 2 units. Hemoglobin 10.9 yesterday. 13. Chronic kidney disease with unclear baseline renal function. 14. Spontaneous pneumothorax, improved now, stable. HOSPITAL COURSE: Ms. Hartmann is a 72-year-old female with a known history of tobacco dependence, COPD and alcohol abuse presented to the hospital with progressive worsening shortness of breath and associated palpitations. Chest x-ray showed left-sided pleural effusion and underwent thoracentesis. Pathology showed no evidence of malignant cells. Patient was treated for acute CHF and COPD exacerbation, which did improve clinically. Patient developed acute kidney injury most likely prerenal possibly due to diuresis. Creatinine peaked at 2.9 and currently at 2.6 now. Baseline creatinine and ( ) renal function is unknown. Patient was seen by Nephrology. Patient may have underlying CKD. Otherwise patient is saturating well at room air now and wants to be discharged and is dressed and ready to go home. Patient denied any complaints of chest pain and shortness of breath. Patient was initially planned to go to [facility], but patient refused to go there and wants to be discharged home. Patient was discharged home and recommended to follow with primary care physician as well as nephrology has an outpatient. Patient was discharged home in stable condition. DISCHARGE PHYSICAL EXAMINATION: A 72-year-old female, lying in the bed, awake, alert and oriented x3. Appears to be in no apparent distress. VITALS: Blood pressure is 115/61, pulse is 90, respirations 18, temperature afebrile, pulse ox 95% on room air. Discharge physical examination done. Discharge medications include: 1. Ferrous sulfate 325 mg p.o. daily. 2. Insulin sliding scale. 3. DuoNeb 3 mL inhalation q.i.d. p.r.n. 4. Prednisone taper dose. 5. Sodium bicarbonate 1300 mg p.o. b.i.d. 6. Verapamil 120 mg p.o. daily. Patient will be discharged home to follow with Dr. Amanda Cali in 3 days. Patient advised to take her medications regularly and does have a history of noncompliance.
== END 2017-04-07 16:16 | disposition home or self-care (01) | DRG 292 ==
LOC: EC 13:12 → 6SEL 14:48
PROVIDERS: ADMIT Hospitalist; ATTEND Hospitalist
PROC: 0W9B3ZX Drainage of Left Pleural Cavity, Percutaneous Approach, Diagnostic (ICD-10-PCS; principal; 2017-04-06)
DX: I50.33 Acute on chronic diastolic (congestive) heart failure (principal); J44.1 Chronic obstructive pulmonary disease with (acute) exacerbation; N17.9 Acute kidney failure, unspecified; R64 Cachexia; E44.0 Moderate protein-calorie malnutrition; E87.2 Acidosis; J90 Pleural effusion, not elsewhere classified; D52.8 Other folate deficiency anemias; J93.83 Other pneumothorax; Z68.1 Body mass index [BMI] 19.9 or less, adult; I47.1 Supraventricular tachycardia; E86.9 Volume depletion, unspecified; E87.8 Other disorders of electrolyte and fluid balance, not elsewhere classified; I35.1 Nonrheumatic aortic (valve) insufficiency; N18.9 Chronic kidney disease, unspecified; D50.9 Iron deficiency anemia, unspecified; E87.6 Hypokalemia; K29.70 Gastritis, unspecified, without bleeding; D53.9 Nutritional anemia, unspecified; F17.200 Nicotine dependence, unspecified, uncomplicated; F10.10 Alcohol abuse, uncomplicated; M19.91 Primary osteoarthritis, unspecified site; Z88.2 Allergy status to sulfonamides
CPT/HCPCS: 36415; 71010; 71020; 76604; 76770; 80048; 80053; 80061; 81001; 82550; 82553; 82607; 82728; 82945; 83036; 83540; 83550; 83615; 83735; 83880; 84100; 84155; 84443; 84484; 85025; 85027; 85049; 85610; 85730; 86850; 86900; 86901; 86920; 87070; 87075; 87205; 88108; 88305; 89050; 93005; 93306; 94640; 94760

== ENCOUNTER 2020-05-25 08:29 | Inpatient (IN) | payer MEDICARE, BC ==
[2020-05-25] MEDS ORDERED: IPRATROPIUM-ALBUTEROL 3 ML NEB INHALATION STA (08:47)
--- NOTE | 2020-05-25 09:13 | ED ---
SOB HPI - General Chief Complaint: Shortness of Breath Stated Complaint: SOB Time Seen by Provider: 05/25/20 08:35 Source: EMS Mode of arrival: EMS Limitations: no limitations - History of Present Illness Initial Comments: Patient is a 75-year-old female presents emergency department from [facility] with reported altered mental status and shortness of breath. Patient is a dialysis patient. She was hospitalized up until a week ago with Covid at an outside h ospital. She was transferred back to her ECF one week ago. Since then she has been refusing her dialysis. The patient does have a public guardian. He recommended that if she was going to stop dialysis that she go hospice. Patient then refused hospice consult. The patient got progressively more confused and is no longer able to make her own decisions. She was also having increasing shortness of breath this morning. She normally wears 2 L at the facility per EMS. Patient had a Rales at the bases with tachypnea. No reported fevers or cough. Patient cannot provide any history and for the HPI is limited - Related Data Home Medications Medication Instructions Recorded Confirmed Loratadine [Claritin] 10 mg PO DAILY@0800 12/28/18 05/25/20 Melatonin 3 mg PO HS PRN 12/28/18 05/25/20 Albuterol Nebulized [Ventolin 2.5 mg INHALATION RT-Q4H PRN 05/25/20 05/25/20 Nebulized] Atorvastatin [Lipitor] 10 mg PO HS@199905/25/20 05/25/20 House Suppliment 1 can PO DAILY@0800 05/25/20 05/25/20 Lidocaine [Lidocaine 3% Topical 1 applic TOPICAL TUTA 05/25/20 05/25/20 Cream] Midodrine HCl [ProAmatine] 10 mg PO Q8H PRN 05/25/20 05/25/20 Ondansetron [Zofran] 4 mg PO Q6H PRN 05/25/20 05/25/20 Pantoprazole [Protonix] 40 mg PO BID@0800,1600 05/25/20 05/25/20 Kristina-Vangie 1 tab PO DAILY@0800 05/25/20 05/25/20 Previous Rx's Medication Instructions Recorded Acetaminophen Tab [Tylenol] 650 mg PO Q4HR PRN tab 09/11/17 Nitroglycerin Sl Tabs [Nitrostat] 0.4 mg SUBLINGUAL Q5M PRN tab 09/19/17 Calcium Acetate [PhosLo] 667 mg PO TID-W/MEALS cap 01/02/19 LORazepam [Ativan] 1 mg PO Q4HR PRN #9 tab 05/27/20 MORPHINE ORAL JUAREZ CONC 20mg/mL 10 mg PO Q4H PRN 3 Days #9 ml 05/27/20 [Roxanol Oral Soln Conc 20MG/ML] Allergies Allergy/AdvReac Type Severity Reaction Status Date / Time Sulfa (Sulfonamide Allergy Anaphylaxis Verified 05/25/20 09:11 Antibiotics) Review of Systems ROS Statement: Those systems with pertinent positive or pertinent negative responses have been documented in the HPI. ROS Other: All systems not noted in ROS Statement are negative. 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 "in past fell off her porch hit head so hard it moved her brain and developed 7 blood clots for which she had a craniotomy" L broken wrist, shingles , ulcer, murmur. History of Any Multi-Drug Resistant Organisms: None Reported Past Surgical History: Hysterectomy, Tonsillectomy, Tubal Ligation Additional Past Surgical History / Comment(s): (L) wrist surgery, craniotomy Past Anesthesia/Blood Transfusion Reactions: No Reported Reaction Past Psychological History: No Psychological Hx Reported Smoking Status: Unknown if ever smoked Past Alcohol Use History: None Reported Past Drug Use History: None Reported - Past Family History Father Family Medical History: No Reported History Mother Additional Family Medical History / Comment(s): stomcah problems and ulcers. General Exam Limitations: no limitations General appearance: lethargic Head exam: Present: other (previous old healed craniotomy site anterior forehead) Eye exam: Present: normal appearance, PERRL, EOMI. Absent: scleral icterus, conjunctival injection, periorbital swelling ENT exam: Present: normal exam, mucous membranes dry Respiratory exam: Present: rales, accessory muscle use, other (tachypnia) Cardiovascular Exam: Present: regular rate, normal rhythm, normal heart sounds. Absent: systolic murmur, diastolic murmur, rubs, gallop, clicks Neurological exam: Present: altered, other (oriented to self. Arises to tactile stimuli. Will follow simple commands. Does not answer most questions appropriately) Course Vital Signs 05/25/20 05/25/20 05/25/20 08:32 09:00 09:14 Temperature 97.7 F Pulse Rate 98 89 92 Respiratory 24 16 Rate Blood Pressure 110/53 115/58 O2 Sat by Pulse 100 100 Oximetry 05/25/20 05/25/20 05/25/20 09:23 09:30 10:00 Temperature Pulse Rate 92 86 Respiratory 18 Rate Blood Pressure 125/45 125/45 O2 Sat by Pulse 100 Oximetry 05/25/20 05/25/20 05/25/20 10:30 11:00 11:30 Temperature Pulse Rate 85 89 93 Respiratory 20 17 18 Rate Blood Pressure 119/50 123/49 118/50 O2 Sat by Pulse 100 100 100 Oximetry - Reevaluation(s) Reevaluation #1: Spoke with doctor Muir in regards the patient dialysis needs. Dialysis will be arranged at this time. Recommending 80 mg IV lasix 05/25/20 11:05 Medical Decision Making - Medical Decision Making Upon arrival the patient is placed into room 1. A thorough history and physical exam was performed. Patient is on a nonrebreather with good oxygen saturations at this time. She is hooked up to continuous pulse ox and cardiac monitoring. A 12-lead EKG was performed. I would restudies were conducted as well as a chest x-ray. Lab studies are remarkable for a white count of 14.1. Hemoglobin 6.5. B-1 129. Creatinine 7.99. BNP is elevated at 48,500. Troponin 0.051. Chest x-ray demonstrates CHF exacerbation. I did CT the patient's brain because of her confusion oximetry as no acute intracranial hemorrhage. Old encephalomalacia right frontal lobe. I called and discussed the case with the patient's guardian. He agrees that the patient is full code at this time. He agrees to blood transfusion and dialysis. He she'll be transfused 1 unit. Guardian would like a hospice consult on the patient while she is hospitalized. The patient will be covered with antibiotics. I discussed case with Dr. Muir who will set the patient's dialysis. We did place a Mckeon and gave the patient 80 mg of Lasix upon his recommendation. She remained in stable condition awaiting transport to the floor - Lab Data Result diagrams: 05/26/20 06:54 05/26/20 06:54 Lab Results 05/25/20 05/25/20 05/25/20 Range/Units 08:50 08:50 08:50 WBC 14.1 H (3.8-10.6) k/uL RBC 2.28 L (3.80-5.40) m/uL Hgb 6.5 L* (11.4-16.0) gm/dL Hct 21.6 L (34.0-46.0) % MCV 94.8 (80.0-100.0) fL MCH 28.6 (25.0-35.0) pg MCHC 30.2 L (31.0-37.0) g/dL RDW 19.5 H (11.5-15.5) % Plt Count 347 (150-450) k/uL Neutrophils % 93 % Lymphocytes % 3 % Monocytes % 3 % Eosinophils % 0 % Basophils % 0 % Neutrophils # 13.0 H (1.3-7.7) k/uL Lymphocytes # 0.4 L (1.0-4.8) k/uL Monocytes # 0.4 (0-1.0) k/uL Eosinophils # 0.0 (0-0.7) k/uL Basophils # 0.0 (0-0.2) k/uL Hypochromasia Moderate Anisocytosis Slight Macrocytosis Slight PT 10.0 (9.0-12.0) sec INR 1.0 (<1.2) APTT 26.2 (22.0-30.0) sec Sodium 131 L (137-145) mmol/L Potassium 4.9 (3.5-5.1) mmol/L Chloride 99 (98-107) mmol/L Carbon Dioxide 17 L (22-30) mmol/L Anion Gap 15 mmol/L BUN 129 H* (7-17) mg/dL Creatinine 7.99 H* (0.52-1.04) mg/dL Est GFR (CKD-EPI)AfAm 5 (>60 ml/min/1.73 sqM) Est GFR (CKD-EPI)NonAf 5 (>60 ml/min/1.73 sqM) Glucose 115 H (74-99) mg/dL Plasma Lactic Acid Carlitos (0.7-2.0) mmol/L Calcium 8.1 L (8.4-10.2) mg/dL Magnesium 2.8 H (1.6-2.3) mg/dL Total Bilirubin 0.3 (0.2-1.3) mg/dL AST 33 (14-36) U/L ALT 14 (4-34) U/L Alkaline Phosphatase 95 (38-126) U/L Creatine Kinase <20 L (30-135) U/L Troponin I (0.000-0.034) ng/mL NT-Pro-B Natriuret Pep pg/mL Total Protein 5.8 L (6.3-8.2) g/dL Albumin 2.5 L (3.5-5.0) g/dL Hep Bs Antigen (Non-Reactive) Hep Bs Antibody (Non-Reactive) Hep Bs Antibody, Quant mIU/mL 05/25/20 05/25/20 05/25/20 Range/Units 08:50 08:50 08:50 WBC (3.8-10.6) k/uL RBC (3.80-5.40) m/uL Hgb (11.4-16.0) gm/dL Hct (34.0-46.0) % MCV (80.0-100.0) fL MCH (25.0-35.0) pg MCHC (31.0-37.0) g/dL RDW (11.5-15.5) % Plt Count (150-450) k/uL Neutrophils % % Lymphocytes % % Monocytes % % Eosinophils % % Basophils % % Neutrophils # (1.3-7.7) k/uL Lymphocytes # (1.0-4.8) k/uL Monocytes # (0-1.0) k/uL Eosinophils # (0-0.7) k/uL Basophils # (0-0.2) k/uL Hypochromasia Anisocytosis Macrocytosis PT (9.0-12.0) sec INR (<1.2) APTT (22.0-30.0) sec Sodium (137-145) mmol/L Potassium (3.5-5.1) mmol/L Chloride (98-107) mmol/L Carbon Dioxide (22-30) mmol/L Anion Gap mmol/L BUN (7-17) mg/dL Creatinine (0.52-1.04) mg/dL Est GFR (CKD-EPI)AfAm (>60 ml/min/1.73 sqM) Est GFR (CKD-EPI)NonAf (>60 ml/min/1.73 sqM) Glucose (74-99) mg/dL Plasma Lactic Acid Carlitos 0.7 (0.7-2.0) mmol/L Calcium (8.4-10.2) mg/dL Magnesium (1.6-2.3) mg/dL Total Bilirubin (0.2-1.3) mg/dL AST (14-36) U/L ALT (4-34) U/L Alkaline Phosphatase (38-126) U/L Creatine Kinase (30-135) U/L Troponin I 0.051 H* (0.000-0.034) ng/mL NT-Pro-B Natriuret Pep 26973 pg/mL Total Protein (6.3-8.2) g/dL Albumin (3.5-5.0) g/dL Hep Bs Antigen (Non-Reactive) Hep Bs Antibody (Non-Reactive) Hep Bs Antibody, Quant mIU/mL 05/25/20 Range/Units 08:50 WBC (3.8-10.6) k/uL RBC (3.80-5.40) m/uL Hgb (11.4-16.0) gm/dL Hct (34.0-46.0) % MCV (80.0-100.0) fL MCH (25.0-35.0) pg MCHC (31.0-37.0) g/dL RDW (11.5-15.5) % Plt Count (150-450) k/uL Neutrophils % % Lymphocytes % % Monocytes % % Eosinophils % % Basophils % % Neutrophils # (1.3-7.7) k/uL Lymphocytes # (1.0-4.8) k/uL Monocytes # (0-1.0) k/uL Eosinophils # (0-0.7) k/uL Basophils # (0-0.2) k/uL Hypochromasia Anisocytosis Macrocytosis PT (9.0-12.0) sec INR (<1.2) APTT (22.0-30.0) sec Sodium (137-145) mmol/L Potassium (3.5-5.1) mmol/L Chloride (98-107) mmol/L Carbon Dioxide (22-30) mmol/L Anion Gap mmol/L BUN (7-17) mg/dL Creatinine (0.52-1.04) mg/dL Est GFR (CKD-EPI)AfAm (>60 ml/min/1.73 sqM) Est GFR (CKD-EPI)NonAf (>60 ml/min/1.73 sqM) Glucose (74-99) mg/dL Plasma Lactic Acid Carlitos (0.7-2.0) mmol/L Calcium (8.4-10.2) mg/dL Magnesium (1.6-2.3) mg/dL Total Bilirubin (0.2-1.3) mg/dL AST (14-36) U/L ALT (4-34) U/L Alkaline Phosphatase (38-126) U/L Creatine Kinase (30-135) U/L Troponin I (0.000-0.034) ng/mL NT-Pro-B Natriuret Pep pg/mL Total Protein (6.3-8.2) g/dL Albumin (3.5-5.0) g/dL Hep Bs Antigen Non-Reactive (Non-Reactive) Hep Bs Antibody Reactive H (Non-Reactive) Hep Bs Antibody, Quant 117.3 mIU/mL - EKG Data EKG Comments: EKG demonstrates normal sinus rhythm with a ventricular rate of 96. SD interval 166. QRS 82. QTC of 467. J-point elevation in V2 through V4. Inverted T waves 5, V6, 1, 2, aVL Disposition Clinical Impression: Elevated troponin, CHF (congestive heart failure), ESRD (end stage renal disease) on dialysis Disposition: ADMITTED IP TO THIS [facility] Condition: Poor Is patient prescribed a controlled substance at d/c from ED?: No Decision to Admit Reason: Admit from EC Decision Date: 05/25/20 Decision Time: 10:08
[2020-05-25 09:23] LABS: Anisocytosis Slight; Basophils % (A) 0 %; Eosinophils % (A) 0 %; HCT 21.6 % (34.0-46.0); Hypochromasia Moderate; Lymphocytes # (A) 0.4 k/uL (1.0-4.8); Lymphocytes % (A) 3 %; MCH 28.6 pg (25.0-35.0); MCHC 30.2 g/dL (31.0-37.0); MCV 94.8 fL (80.0-100.0); Macrocytosis Slight; Mean Platelet Volume 7.9; Monocytes # (A) 0.4 k/uL (0-1.0); Monocytes % (A) 3 %; Neutrophils % (A) 93 %; Platelet Count 347 k/uL (150-450); RBC 2.28 m/uL (3.80-5.40); RDW 19.5 % (11.5-15.5); WBC 14.1 k/uL (3.8-10.6)
[2020-05-25 09:32] LABS: Partial Thromboplastin Time 26.2 sec (22.0-30.0)
[2020-05-25 09:38] LABS: ALT 14 U/L (4-34); AST 33 U/L (14-36); African American GFR (CKD) 5 (>60 ml/min/1.73 sqM); Albumin 2.5 g/dL (3.5-5.0); Alkaline Phosphatase 95 U/L (38-126); Anion Gap 15 mmol/L; Calcium 8.1 mg/dL (8.4-10.2); Carbon Dioxide 17 mmol/L (22-30); Chloride 99 mmol/L (98-107); Creatine Kinase <20 U/L (30-135); Glucose 115 mg/dL (74-99); Magnesium 2.8 mg/dL (1.6-2.3); Non-African American GFR(CKD) 5 (>60 ml/min/1.73 sqM); Potassium 4.9 mmol/L (3.5-5.1); Sodium 131 mmol/L (137-145); Total Bilirubin 0.3 mg/dL (0.2-1.3); Total Protein 5.8 g/dL (6.3-8.2)
[2020-05-25 09:39] LABS: HGB 6.5 gm/dL (11.4-16.0)
[2020-05-25 09:48] LABS: Blood Urea Nitrogen 129 mg/dL (7-17)
--- NOTE | 2020-05-25 10:00 | XR ---
EXAMINATION TYPE: XR chest 2V DATE OF EXAM: 05/25/2020 COMPARISON: Chest x-ray January 06, [address] chest September 06, 2017. HISTORY: Dyspnea and weakness. TECHNIQUE: Frontal and lateral views of the chest are obtained. FINDINGS: There there are small to moderate size right greater than left pleural effusions including presumed right greater than left apical components. There is associated bibasilar compressive atelec tasis. Increased interstitial prominence bilaterally. The cardiac silhouette size remains enlarged wi th atherosclerotic thoracic aorta redemonstrated. The osseous structures are intact. Vascular calci fication bilateral axillary region. IMPRESSION: Correlate for CHF exacerbation more fluid overload state as there is cardiomegaly with s mall to moderate size right great than left pleural effusions and [id number] interstitial edema currently.
--- NOTE | 2020-05-25 10:02 | CT ---
EXAMINATION TYPE: CT brain wo con DATE OF EXAM: 05/25/2020 HISTORY: AMS with Shortness of breath CT DLP: 1064.4 mGycm. Automated Exposure Control for Dose Reduction was Utilized. TECHNIQUE: CT scan of the head is performed without contrast. COMPARISON: 09/05/2017 CT brain FINDINGS: There is no acute intracranial hemorrhage, midline shift, or mass effect identified. Redemonstrated e ncephalomalacia of the right frontal lobe. Patchy periventricular hypodensities likely sequela of chr onic microvascular ischemic change. The ventricles, sulci, and cisterns are prominent concordant with volume loss. No extra-axial fluid collection. Prior right frontal craniotomy postsurgical changes. The globes are grossly symmetric. There is mucosal thickening of the right maxillary sinus. Mastoid air cells are cl ear. IMPRESSION: 1. No acute intercranial hemorrhage, midline shift, or mass effect. 2. Old encephalomalacia of the right frontal lobe.
[2020-05-25] MEDS ORDERED: NALOXONE 0.4 MG/ML 1 ML VIAL IV PRN (10:08)
[2020-05-25] MEDS ORDERED: FUROSEMIDE 10 MG/ML 10 ML VIAL IV STA (10:54)
[2020-05-25] MEDS ORDERED: VANCOMYCIN IV PER PHARMACY 1 EACH MISC MISCELLANE PRN (11:28)
[2020-05-25 11:48] LABS: Appearance,Urine Turbid (Clear); Bacteria,Urine Moderate /hpf; Bilirubin,Urine Negative (Negative); Blood,Urine Large (Negative); Color,Urine Light Red; Glucose,Urine (UA) 2+ (Negative); Ketones,Urine Negative (Negative); Leukocyte Esterase,Urine Large (Negative); Mucus,Urine Few /hpf; Nitrite,Urine Negative (Negative); PH, Urine 6.5 (5.0-8.0); Protein,Urine 2+ (Negative); RBC,Urine >182 /hpf (0-5); Specific Gravity,Urine 1.014 (1.001-1.035); Squamous Epithelial Cell,Urine 4 /hpf (0-4); Urobilinogen,Urine <2.0 mg/dL (<2.0); WBC,Urine >182 /hpf (0-5)
--- NOTE | 2020-05-25 12:24 | P.NPCON ---
History of Present Illness - Reason for Consult end stage renal disease - History of Present Illness Reason for consultation: End-stage renal disease Patient is a 75-year-old female seen in consultation for end-stage renal disease. She is making on hemodialysis on Monday schedule. Patient resides at an extended care facility and was refusing hemodialysis. She has not been dialysis for over a week now. Patient became confused and was subsequently sent to the hospital. Hemoglobin was noted to be 6.5 and she did receive a unit of blood. Hospice is being considered but no official decision has been made so far. The ER physician spoke with the guardian and they're okay with continuing with hemodialysis as well as blood transfusion at this time. Hospice has been consulted inpatient. Patient is quite confused. Hemodynamically stable. Potassium normal. No fever or chills. Patient has history of multiple myeloma. Vital signs are stable. General: The patient appeared well nourished and normally developed. HEENT: Head exam is unremarkable. Neck is without jugular venous distension. LUNGS: Lungs are clear to auscultation and percussion. Breath sounds decreased. HEART: Rate and Rhythm are regular. ABDOMEN: Soft, nontender. EXTREMITITES: No clubbing, cyanosis, or edema. Past Medical History Past Medical History: Heart Failure, COPD, Osteoarthritis (OA) Additional Past Medical History / Comment(s): COPD, left-sided pleural effusion with a previous thoracentesis and the fluid itself was nondiagnostic for malignancy and the fluid cytology was negative for cancer, chronic renal failure, chronic anemia, iron deficiency, previous history of subdural hematoma requiring craniotomy and evacuation and the patient has chronic encephalomalacia involving the right frontal lobe, spondylotic changes involving the cervical spine, large infarct involving the right frontal lobe/CVA, valvular heart disease with evidence of severe to moderate aortic valve regurgitation and preserved LV function based on the most recent echocardiogram from 2017, shingles. "in past fell off her porch hit head so hard it moved her brain and developed 7 blood clots for which she had a craniotomy" L broken wrist, shingles , ulcer, murmur. History of Any Multi-Drug Resistant Organisms: None Reported Past Surgical History: Hysterectomy, Tonsillectomy, Tubal Ligation Additional Past Surgical History / Comment(s): (L) wrist surgery, craniotomy Past Anesthesia/Blood Transfusion Reactions: No Reported Reaction Smoking Status: Former smoker - Past Family History Father Family Medical History: No Reported History Mother Additional Family Medical History / Comment(s): stomcah problems and ulcers. Medications and Allergies Home Medications Medication Instructions Recorded Confirmed Type Acetaminophen Tab [Tylenol] 650 mg PO Q4HR PRN tab 09/11/17 05/25/20 Rx Nitroglycerin Sl Tabs [Nitrostat] 0.4 mg SUBLINGUAL Q5M PRN tab 09/19/17 05/25/20 Rx Loratadine [Claritin] 10 mg PO DAILY@0800 12/28/18 05/25/20 History Melatonin 3 mg PO HS PRN 12/28/18 05/25/20 History Calcium Acetate [PhosLo] 667 mg PO TID-W/MEALS cap 01/02/19 05/25/20 Rx Albuterol Nebulized [Ventolin 2.5 mg INHALATION RT-Q4H PRN 05/25/20 05/25/20 History Nebulized] Atorvastatin [Lipitor] 10 mg PO HS@199905/25/20 05/25/20 History House Suppliment 1 can PO DAILY@0800 05/25/20 05/25/20 History Lidocaine [Lidocaine 3% Topical 1 applic TOPICAL TUTHSA 05/25/20 05/25/20 H istory Cream] Midodrine HCl [ProAmatine] 10 mg PO Q8H PRN 05/25/20 05/25/20 History Nepro 1 can PO BID-W/MEALS 05/25/20 05/25/20 History Ondansetron [Zofran] 4 mg PO Q6H PRN 05/25/20 05/25/20 History Pantoprazole [Protonix] 40 mg PO BID@0800,1600 05/25/20 05/25/20 History Kristina-Vangie 1 tab PO DAILY@0800 05/25/20 05/25/20 History traMADol HCl [Ultram] 50 mg PO Q12H PRN 05/25/20 05/25/20 History Allergies Allergy/AdvReac Type Severity Reaction Status Date / Time Sulfa (Sulfonamide Allergy Anaphylaxis Verified 05/25/20 09:11 Antibiotics) Physical Exam Vitals: Vital Signs Temp Pulse Resp BP Pulse Ox 05/25/20 11:30 93 18 118/50 100 05/25/20 11:00 89 17 123/49 100 05/25/20 10:30 85 20 119/50 100 05/25/20 10:00 86 18 125/45 100 05/25/20 09:30 125/45 05/25/20 09:23 92 05/25/20 09:14 92 05/25/20 09:00 89 16 115/58 100 05/25/20 08:32 97.7 F 98 24 110/53 100 Intake and Output 05/24/20 05/25/20 05/25/20 22:59 06:59 14:59 Other: Weight 65.771 kg Results - Lab Results Most recent lab results Calcium 8.1 mg/dL (8.4-10.2) L 05/25/20 08:50 Magnesium 2.8 mg/dL (1.6-2.3) H 05/25/20 08:50 05/25/20 08:50 05/25/20 08:50 Assessment and Plan Plan: Assessment: 1. End-stage renal disease maintained on hemodialysis on Monday schedule. Patient has not been dialyzed for over a week as she was refusing. 2. Anemia of chronic kidney disease. No acute bleeding noted. Scheduled to receive a unit of blood today. 3. Metabolic acidosis secondary to chronic kidney disease. Expect improvement postdialysis. 4. Hyponatremia secondary to chronic kidney disease. 5. History of multiple myeloma. 6. Volume overload. Plan: Hemodialysis today. Will try for 4 L ultrafiltration. Transfuse 1 unit of packed red cells today. Add Aranesp. Hospice consulted. Thank you for the consultation. I will continue to follow the patient with you during her hospital stay.
[2020-05-25] MEDS ORDERED: DARBEPOETIN ALFA 40 MCG/0.4 ML SYRINGE SQ SCH (12:30)
[2020-05-25] MEDS: PIPERACILLIN-TAZOBACTAM 3.375 GM in SODIUM CHLORIDE 0.9% 100 ML IVPB STA ×2 (13:00→18:16)
[2020-05-25] MEDS: VANCOMYCIN 1,250 MG in SODIUM CHLORIDE 0.9% 250 ML IVPB ONE ×2 (13:00→18:10)
[2020-05-25] MEDS ORDERED: PIPERACILLIN-TAZOBACTAM 3.375 GM in SODIUM CHLORIDE 0.9% 100 ML IVPB STA (18:13)
[2020-05-25] MEDS ORDERED: ACETAMINOPHEN TAB 325 MG TAB PO PRN (23:31)
--- NOTE | 2020-05-25 23:31 | P.HPIM ---
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 Patient was hospitalized until a week ago with COVAMEENA at an outside hospital facility. She was transferred back to her ECF about a week ago. Since then she has been refusing hemodialysis. Patient does have a public guardian. He recommended that if she was going to stop dialysisshe has developed to hospice care. Patient then refused hospice consult. Patient has been progressively more confused and But able to make her 1 decisions. Along with that patient has been having increased shortness of breath this morning. Normally on 2 L oxygen. Otherwise patient does not have any fever or chills. No cough or sputum production. Denied any chest pain. CT head on admission showed no acute intracranial hemorrhage, midline shift, mass-effect. Old encephalomalacia of the right frontal lobe Chest x-ray showed correlate for CHF exacerbation more fluid overload state as there is cardiomegaly with small to moderate sized right greater than left pleural effusions and mild to moderate interstitial edema. EKG showed normal sinus rhythm and left axis deviation Laboratory data showed WBC 14.1, hemoglobin 6.5, platelets 347 BUN 129 creatinine 7.99 Troponin 0 0.051 proBNP is 48 500 Urinalysis showed turbid with large blood and large leukocyte esterase WBCs and RBCs greater than 182. Squamous epithelial cells 4 Review of Systems Complete review of systems could not be obtained from the patient except as per HPI. Past Medical History Past Medical History: Heart Failure, COPD, Osteoarthritis (OA) Additional Past Medical History / Comment(s): COPD, left-sided pleural effusion with a previous thoracentesis and the fluid itself was nondiagnostic for malignancy and the fluid cytology was negative for cancer, chronic renal failure, chronic anemia, iron deficiency, previous history of subdural hematoma requiring craniotomy and evacuation and the patient has chronic encephalomalacia involving the right frontal lobe, spondylotic changes involving the cervical spine, large infarct involving the right frontal lobe/CVA, valvular heart disease with evidence of severe to moderate aortic valve regurgitation and preserved LV function based on the most recent echocardiogram from 2017, shingles. "in past fell off her porch hit head so hard it moved her brain and developed 7 blood clots for which she had a craniotomy" L broken wrist, shingles , ulcer, murmur. History of Any Multi-Drug Resistant Organisms: None Reported Past Surgical History: Hysterectomy, Tonsillectomy, Tubal Ligation Additional Past Surgical History / Comment(s): (L) wrist surgery, craniotomy Past Anesthesia/Blood Transfusion Reactions: No Reported Reaction Smoking Status: Former smoker - Past Family History Father Family Medical History: No Reported History Mother Additional Family Medical History / Comment(s): stomcah problems and ulcers. Medications and Allergies Home Medications Medication Instructions Recorded Confirmed Type Acetaminophen Tab [Tylenol] 650 mg PO Q4HR PRN tab 09/11/17 05/25/20 Rx Nitroglycerin Sl Tabs [Nitrostat] 0.4 mg SUBLINGUAL Q5M PRN tab 09/19/17 05/25/20 Rx Loratadine [Claritin] 10 mg PO DAILY@0812/28/18 05/25/20 History Melatonin 3 mg PO HS PRN 12/28/18 05/25/20 History Calcium Acetate [PhosLo] 667 mg PO TID-W/MEALS cap 01/02/19 05/25/20 Rx Albuterol Nebulized [Ventolin 2.5 mg INHALATION RT-Q4H PRN 05/25/20 05/25/20 History Nebulized] Atorvastatin [Lipitor] 10 mg PO HS@199905/25/20 05/25/20 History House Suppliment 1 can PO DAILY@0805/25/20 05/25/20 History Lidocaine [Lidocaine 3% Topical 1 applic TOPICAL TUTHSA 05/25/20 05/25/20 History Cream] Midodrine HCl [ProAmatine] 10 mg PO Q8H PRN 05/25/20 05/25/20 History Nepro 1 can PO BID-W/MEALS 05/25/20 05/25/20 History Ondansetron [Zofran] 4 mg PO Q6H PRN 05/25/20 05/25/20 History Pantoprazole [Protonix] 40 mg PO BID@0800,1600 05/25/20 05/25/20 History Kristina-Vangie 1 tab PO DAILY@0800 05/25/20 05/25/20 History traMADol HCl [Ultram] 50 mg PO Q12H PRN 05/25/20 05/25/20 History Allergies Allergy/AdvReac Type Severity Reaction Status Date / Time Sulfa (Sulfonamide Allergy Anaphylaxis Verified 05/25/20 09:11 Antibiotics) Physical Exam Vitals: Vital Signs Temp Pulse Resp BP Pulse Ox 05/25/20 11:30 93 18 118/50 100 05/25/20 11:00 89 17 123/49 100 05/25/20 10:30 85 20 119/50 100 05/25/20 10:00 86 18 125/45 100 05/25/20 09:30 125/45 05/25/20 09:23 92 05/25/20 09:14 92 05/25/20 09:00 89 16 115/58 100 05/25/20 08:32 97.7 F 98 24 110/53 100 Intake and Output 05/25/20 05/25/20 05/25/20 06:59 14:59 22:59 Other: Weight 65.771 kg PHYSICAL EXAMINATION: Patient is lying in the bed comfortably, no acute distress, awake alert and oriented.. HEENT: Normocephalic. Neck is supple. Pupils reactive. Nostrils clear. Oral cavity is moist. Ears reveal no drainage. Neck reveals no JVD, carotid bruits, or thyromegaly. CHEST EXAMINATION: Trachea is central. Symmetrical expansion. Bibasilar diminished air entry. Lung rosales clear to auscultation and percussion. CARDIAC: Normal S1, S2 with no gallops. No murmurs ABDOMEN: Soft. Bowel sounds normal. No organomegaly. No abdominal bruits. Extremities: reveal no edema. No clubbing or cyanosis Neurologically awake, alert, oriented x1-2 with well-coordinated movements. No focal deficits noted Skin: No rash or skin lesions. Psychiatric: Coperative. Could not be assessed completely. Musculoskeletal: No joint swelling or deformity. Normal range of motion. Results CBC & Chem 7: 05/25/20 08:50 05/25/20 08:50 Labs: Abnormal Lab Results - Last 24 Hours (Table) 05/25/20 05/25/20 05/25/20 Range/Units 08:50 08:50 08:50 WBC 14.1 H (3.8-10.6) k/uL RBC 2.28 L (3.80-5.40) m/uL Hgb 6.5 L* (11.4-16.0) gm/dL Hct 21.6 L (34.0-46.0) % MCHC 30.2 L (31.0-37.0) g/dL RDW 19.5 H (11.5-15.5) % Neutrophils # 13.0 H (1.3-7.7) k/uL Lymphocytes # 0.4 L (1.0-4.8) k/uL Sodium 131 L (137-145) mmol/L Carbon Dioxide 17 L (22-30) mmol/L BUN 129 H* (7-17) mg/dL Creatinine 7.99 H* (0.52-1.04) mg/dL Glucose 115 H (74-99) mg/dL Calcium 8.1 L (8.4-10.2) mg/dL Magnesium 2.8 H (1.6-2.3) mg/dL Creatine Kinase <20 L (30-135) U/L Troponin I 0.051 H* (0.000-0.034) ng/mL Total Protein 5.8 L (6.3-8.2) g/dL Albumin 2.5 L (3.5-5.0) g/dL Urine Appearance (Clear) Urine Protein (Negative) Urine Glucose (UA) (Negative) Urine Blood (Negative) Ur Leukocyte Esterase (Negative) Urine RBC (0-5) /hpf Urine WBC (0-5) /hpf Urine WBC Clumps (None) /hpf Urine Bacteria (None) /hpf Urine Mucus (None) /hpf Crossmatch 05/25/20 05/25/20 Range/Units 10:25 11:14 WBC (3.8-10.6) k/uL RBC (3.80-5.40) m/uL Hgb (11.4-16.0) gm/dL Hct (34.0-46.0) % MCHC (31.0-37.0) g/dL RDW (11.5-15.5) % Neutrophils # (1.3-7.7) k/uL Lymphocytes # (1.0-4.8) k/uL Sodium (137-145) mmol/L Carbon Dioxide (22-30) mmol/L BUN (7-17) mg/dL Creatinine (0.52-1.04) mg/dL Glucose (74-99) mg/dL Calcium (8.4-10.2) mg/dL Magnesium (1.6-2.3) mg/dL Creatine Kinase (30-135) U/L Troponin I (0.000-0.034) ng/mL Total Protein (6.3-8.2) g/dL Albumin (3.5-5.0) g/dL Urine Appearance Turbid H (Clear) Urine Protein 2+ H (Negative) Urine Glucose (UA) 2+ H (Negative) Urine Blood Large H (Negative) Ur Leukocyte Esterase Large H (Negative) Urine RBC >182 H (0-5) /hpf Urine WBC >182 H (0-5) /hpf Urine WBC Clumps Many H (None) /hpf Urine Bacteria Moderate H (None) /hpf Urine Mucus Few H (None) /hpf Crossmatch See Detail Thrombosis Risk Factor Assmnt - DVT/VTE Prophylaxis DVT/VTE Prophylaxis: Pharmacologic Prophylaxis ordered - Choose All That Apply Any of the Below Risk Factors Present?: Yes Each Factor Represents 1 point: Abnormal pulmonary function (COPD), Heart failure (<1month) Other Risk Factors: Yes Each Risk Factor Represents 2 Points: Age 61-74 years Other congenital or acquired thrombophilia - If yes, enter type in comment: No Thrombosis Risk Factor Assessment Total Risk Factor Score: 4 Thrombosis Risk Factor Assessment Level: Moderate Risk Assessment and Plan Assessment: SOB secondary to Volume overload secondary to missed hemodialysis. ESRD on hemodialysis Monday and Monday Acute on chronic CHF with diastolic dysfunction due to Valvular abnormality Metabolic encephalopathy Possible urinary tract infection Moderate-sized right greater than left pleural effusion Mild elevated troponin level likely due to demand mismatch and CHF Anemia of chronic disease Hyponatremia likely due to hypervolemic Metabolic acidosis History of CVA with large infarct involving the right frontal lobe Moderate aortic valve regurgitation History of subdural hematoma requiring craniotomy Previous history of smoking DVT prophylaxis Plan: Patient will be continued on broad-spectrum antibiotics in the form of vancomycin and Zosyn currently. Patient was seen by nephrology and was started on hemodialysis. Patient will be transfused with 1 unit PRBC. Continue with home medications and follow-up closely. Prognosis guarded at this time. Patient is currently more awake and oriented. Hospice care consult as per guardian with the patient is agreeable. Further recommendations based on the clinical course. Time with Patient: Greater than 30
[2020-05-26 00:40] LABS: Hepatitis B Surface AB- Quant 117.3 mIU/mL; Hepatitis B Surface Antibody Reactive (Non-Reactive); Hepatitis B Surface Antigen Non-Reactive (Non-Reactive)
[2020-05-26] MEDS: CALCIUM ACETATE 667 MG TAB PO SCH ×3 (07:06→16:33)
[2020-05-26] MEDS: HEPARIN SODIUM,PORCINE 5,000 UNIT/ML 1 ML VIAL SQ SCH ×3 (07:06→16:33)
[2020-05-26] MEDS ORDERED: NEPRO PO SCH (07:30)
[2020-05-26 07:44] LABS: Anisocytosis Slight; Basophils % (A) 1 %; Eosinophils % (A) 1 %; HCT 23.8 % (34.0-46.0); HGB 7.5 gm/dL (11.4-16.0); Hypochromasia Moderate; Lymphocytes # (A) 0.5 k/uL (1.0-4.8); Lymphocytes % (A) 7 %; MCH 28.6 pg (25.0-35.0); MCHC 31.5 g/dL (31.0-37.0); MCV 90.8 fL (80.0-100.0); Macrocytosis Slight; Mean Platelet Volume 7.6; Monocytes # (A) 0.4 k/uL (0-1.0); Monocytes % (A) 5 %; Neutrophils # (A) 5.9 k/uL (1.3-7.7); Neutrophils % (A) 84 %; Platelet Count 260 k/uL (150-450); Poikilocytosis Slight; RBC 2.62 m/uL (3.80-5.40); RDW 19.5 % (11.5-15.5)
[2020-05-26 07:55] LABS: Calcium 8.3 mg/dL (8.4-10.2); Potassium 4.2 mmol/L (3.5-5.1)
[2020-05-26] MEDS: ALBUTEROL NEBULIZED 2.5 MG/3 ML INHALATION PRN (08:06)
[2020-05-26] MEDS ORDERED: VANCOMYCIN 1,250 MG in SODIUM CHLORIDE 0.9% 250 ML IVPB ONE (09:00)
--- NOTE | 2020-05-26 12:09 | P.PN ---
Subjective Patient is seen in follow-up for end-stage renal disease. She is maintained on hemodialysis on Monday schedule. She had missed dialysis for over a week prior to admission. Tolerated dialysis well yesterday and is receiving another treatment today. Hospice has been consulted. Patient remains confused. Vital signs are stable. General: The patient appeared well nourished and normally developed. HEENT: Head exam is unremarkable. Neck is without jugular venous distension. LUNGS: Lungs are clear to auscultation and percussion. Breath sounds decreased. HEART: Rate and Rhythm are regular. ABDOMEN: Soft, nontender. EXTREMITITES: No clubbing, cyanosis, or edema. Objective - Vital Signs Vital signs: Vital Signs Temp 99.4 F 05/26/20 04:00 Pulse 104 H 05/26/20 08:23 Resp 18 05/26/20 11:43 BP 112/44 05/26/20 04:00 Pulse Ox 100 05/26/20 04:00 Intake & Output 05/25/20 05/26/20 05/26/20 18:59 06:59 18:59 Intake Total 970 0 Output Total 3000 Balance 970 -3000 0 Weight 65.771 kg 56 kg Intake: Intake, IV Titration 350 Amount Piperacillin-Tazobactam 3 100 .375 gm In Sodium Chloride 0.9% 100 ml @ 200 mls/hr IVPB ONCE STA Rx#:[id number] Vancomycin 1,250 mg In 250 Sodium Chloride 0.9% 250 ml @ 125 mls/hr IVPB ONCE ONE Rx#:[id number] Oral 0 0 Blood Product 620 Rc As-1 Unit 310 [id number] Output: Urine 300 Hemodialysis 2700 Other: Voiding Method Indwelling Catheter Indwelling Catheter Indwelling Catheter - Labs CBC & Chem 7: 05/26/20 06:54 05/26/20 06:54 Labs: Abnormal Lab Results - Last 24 Hours (Table) 05/25/20 05/25/20 05/26/20 Range/Units 08:50 10:25 06:54 RBC 2.62 L (3.80-5.40) m/uL Hgb 7.5 L (11.4-16.0) gm/dL Hct 23.8 L (34.0-46.0) % RDW 19.5 H (11.5-15.5) % Lymphocytes # 0.5 L (1.0-4.8) k/uL Chloride (98-107) mmol/L BUN (7-17) mg/dL Creatinine (0.52-1.04) mg/dL Calcium (8.4-10.2) mg/dL Hep Bs Antibody Reactive H (Non-Reactive) Crossmatch See Detail 05/26/20 Range/Units 06:54 RBC (3.80-5.40) m/uL Hgb (11.4-16.0) gm/dL Hct (34.0-46.0) % RDW (11.5-15.5) % Lymphocytes # (1.0-4.8) k/uL Chloride 109 H (98-107) mmol/L BUN 57 H (7-17) mg/dL Creatinine 3.70 H (0.52-1.04) mg/dL Calcium 8.3 L (8.4-10.2) mg/dL Hep Bs Antibody (Non-Reactive) Crossmatch Assessment and Plan Plan: Assessment: 1. End-stage renal disease maintained on hemodialysis on Monday schedule. Mr. over a week of dialysis prior to admission. 2. Anemia of chronic kidney disease. No acute bleeding noted. Status post blood transfusion on May 25. Maintained on Aranesp. 3. Metabolic acidosis secondary to chronic kidney disease. Improved postdialysis. 4. Hyponatremia secondary to chronic kidney disease. Improved postdialysis. 5. History of multiple myeloma. 6. Volume overload. Better with ultrafiltration. Plan: Currently seen while undergoing hemodialysis. Next treatment on . Hospice consulted.
--- NOTE | 2020-05-26 15:12 | CDI ---
Documentation Clarification Form Date: 05/26/2020 02:50:03 PM From: Darcy Vigil RN CCDS Admit Date: 05/25/2020 10:08:00 AM Patient Name: Penelope Hartmann Visit Number: [id number] Discharge Date: ATTENTION: The Clinical Documentation Specialists (CDI) and [facility] Coding Staff appreciate your assistance in clarifying documentation. Please respond to the clarification below the line at the bottom and electronically sign. The CDI & [facility] Coding staff will review the response and follow-up if needed. Please note: Queries are made part of the Legal Health Record. If you have any questions, please contact the author of this message via ITS. Dr. April Pandey The patient presented with the following respiratory symptoms shortness of breath. History/Risk Factors: 75-year-old female presents to the with shortness of breath and altered mental status discharged one week ago to ECF after being hospitalized for COVID at an outside hospital. Medical history of ESRD on hemodialysis Monday - Monday refused Hemodialysis prior to admission; CHF and COPD. Tobacco use: previous history of smoking Home oxygen: Per H&P normally on 2 Liters oxygen Clinical Indicators: 05/25 Vital signs: B/P: 110/53; HR: 98; Temp: 97.7 Axillary; SpO2: 100% Simple Mask 4L oxygen Chest examination: Trachea is central. Symmetrical expansion. Bibasilar diminished air entry. Lung rosales clear to auscultation and percussion Treatment: Breathing Tx: 8/10 Ventolin Nebulized PRN; 8/10 4L simple mask see above; RR 18, 100% 4L nasal cannula; In your professional opinion, can you please clarify if these findings signify one of the following conditions? Acute on Chronic Respiratory Failure Chronic Respiratory Failure Other Diagnosis, please specify Unable to determine Specificity: If known, further specify (if known): With hypercapnia? (pCO2 >50 and pH <7.35) With hypoxia? (pO2 <60 mm Hg or SpO2 <91% on room air) (Last Query Form Revision: June 2019) Acute on Chronic Respiratory Failure MTDD
[2020-05-26] MEDS: PANTOPRAZOLE 40 MG TABLET PO SCH ×2 (16:32→16:33)
[2020-05-26] MEDS ORDERED: ATORVASTATIN 10 MG TAB PO SCH (20:00)
[2020-05-27] MEDS: ALBUTEROL NEBULIZED 2.5 MG/3 ML INHALATION PRN ×2 (08:16→11:49)
[2020-05-27 09:15] VITALS: RESP 16; TEMP 97.7
[2020-05-27] MEDS: HEPARIN SODIUM,PORCINE 5,000 UNIT/ML 1 ML VIAL SQ SCH ×2 (09:30→09:31)
[2020-05-27] MEDS: CALCIUM ACETATE 667 MG TAB PO SCH ×2 (09:31→12:21)
[2020-05-27] MEDS: PANTOPRAZOLE 40 MG TABLET PO SCH (09:31)
--- NOTE | 2020-05-27 11:26 | P.PN ---
Subjective Patient is seen in follow-up for end-stage renal disease. She is maintained on hemodialysis on Monday schedule. She had missed dialysis for over a week prior to admission. Tolerated dialysis well yesterday. Patient remains confused. Vital signs are stable. General: The patient appeared well nourished and normally developed. HEENT: Head exam is unremarkable. Neck is without jugular venous distension. LUNGS: Lungs are clear to auscultation and percussion. Breath sounds decreased. HEART: Rate and Rhythm are regular. ABDOMEN: Soft, nontender. EXTREMITITES: No clubbing, cyanosis, or edema. Objective - Vital Signs Vital signs: Vital Signs Temp 97.7 F 05/27/20 09:13 Pulse 96 05/27/20 09:13 Resp 16 05/27/20 09:13 BP 118/54 05/27/20 09:13 Pulse Ox 99 05/27/20 04:00 Intake & Output 05/26/20 05/27/20 05/27/20 18:59 06:59 18:59 Intake Total 180 120 Output Total 200 -20 120 Weight 58.5 kg Intake: Oral 180 120 Output: Urine 200 Other: Voiding Method Indwelling Catheter Indwelling Catheter # Voids 0 0 - Labs CBC & Chem 7: 05/26/20 06:54 05/26/20 06:54 Labs: Microbiology - Last 24 Hours (Table) 05/25/20 11:55 Blood Culture - Preliminary Blood No Growth after 24 hours Assessment and Plan Plan: Assessment: 1. End-stage renal disease maintained on hemodialysis on Monday schedule. Missed over a week of dialysis prior to admission. 2. Anemia of chronic kidney disease. No acute bleeding noted. Status post blood transfusion on May 25. Maintained on Aranesp. 3. Metabolic acidosis secondary to chronic kidney disease. Improved postdialysis. 4. Hyponatremia secondary to chronic kidney disease. Improved postdialysis. 5. History of multiple myeloma. 6. Volume overload. Better with ultrafiltration. Plan: No further hemodialysis. Patient will be going back to ECF on hospice.
[2020-05-27] MEDS ORDERED: VANCOMYCIN 1,000 MG in SODIUM CHLORIDE 0.9% 250 ML IVPB ONE (12:00)
[2020-05-27 12:53] VITALS: BP 107/77; PULSE 108
--- NOTE | 2020-05-27 15:03 | P.DS ---
Providers Date of admission: 05/25/20 10:08 Expected date of discharge: 05/27/20 Attending physician: April Pandey Consults: 05/25/20 10:09 Consult Physician Urgent Consulting Provider: Juan Jose Muir Consult Reason/Comments: ESRD on HD Do you want consulting provider notified?: Yes Primary care physician: Coy Martini [facility] Course: Final diagnosis SOB secondary to Volume overload secondary to missed hemodialysis. ESRD on hemodialysis Monday and Monday Acute on chronic CHF with diastolic dysfunction due to Valvular abnormality Metabolic encephalopathy Possible urinary tract infection Moderate-sized right greater than left pleural effusion Mild elevated troponin level likely due to demand mismatch and CHF Anemia of chronic disease Hyponatremia likely due to hypervolemic Metabolic acidosis History of CVA with large infarct involving the right frontal lobe Moderate aortic valve regurgitation History of subdural hematoma requiring craniotomy Previous history of smoking DVT prophylaxis Discharge disposition Patient is being discharged in a stable condition with guarded prognosis to [facility] on hospice. Patient will continue with [facility] in the outpatient setting. Total time taken is greater than 35 minutes. History of present illness This is a 75-year-old female who was recently admitted with altered mental sta tus and increasing shortness of breath and was being closely monitored. Patient has an extensive past medical history of end-stage renal disease on hemodialysis, history of thoracentesis with malignant cells and the cytology, anemia of chronic disease, iron deficiency, history of certain subdural hematoma, chronic spondylitic changes involving the cervical spine, severe aortic valve regurgitation and preserved LV function and the most recent echo in recent admission at another hospital for Covid infection. Patient was admitted ECF prior to admission. Patient has been refusing hemodialysis and continues to refuse any further treatments. Patient met with hospice and is agreeable to hospice and will be discharged today. Patient does have a public guardian. Currently no reports of chest pain, shortness of breath, or palpitations. Patient is afebrile. No reports of nausea or vomiting and patient is tolerating diet. [facility] On exam vital signs are stable. Temp is 97.7F, pulse is 96, respirations are 16, blood pressure is 118/54, oxygen saturation is 100 % on 4 L via nasal cannula. Cardio S1, S2 are muffled. Respiratory system shows diminished breath sounds at the bases with some scattered rhonchi noted. Abdomen is soft and nontender. Nervous system shows diffuse weakness. Please refer to medication reconciliation sheet for a list of medications. Patient Condition at Discharge: Poor Plan - Discharge Summary Discharge Rx Participant: No New Discharge Prescriptions: New LORazepam [Ativan] 1 mg PO Q4HR PRN #9 tab PRN Reason: Anxiety MORPHINE ORAL JUAREZ CONC 20mg/mL [Roxanol Oral Soln Conc 20MG/ML] 10 mg PO Q4H PRN 3 Days #9 ml PRN Reason: Pain Continue Acetaminophen Tab [Tylenol] 650 mg PO Q4HR PRN tab PRN Reason: Fever And/ Or Pain Nitroglycerin Sl Tabs [Nitrostat] 0.4 mg SUBLINGUAL Q5M PRN tab PRN Reason: Chest Pain Melatonin 3 mg PO HS PRN PRN Reason: Insomnia Loratadine [Claritin] 10 mg PO DAILY@0800 Calcium Acetate [PhosLo] 667 mg PO TID-W/MEALS [facility] House Suppliment 1 can PO DAILY@0800 Kristina-Vangie 1 tab PO DAILY@0800 Albuterol Nebulized [Ventolin Nebulized] 2.5 mg INHALATION RT-Q4H PRN PRN Reason: AIRWAY PATENCY Atorvastatin [Lipitor] 10 mg PO HS@2000 Lidocaine [Lidocaine 3% Topical Cream] 1 applic TOPICAL TUTHSA Midodrine HCl [ProAmatine] 10 mg PO Q8H PRN PRN Reason: Hypotension Ondansetron [Zofran] 4 mg PO Q6H PRN PRN Reason: Nausea And Vomiting Pantoprazole [Protonix] 40 mg PO BID@0800,1600 Discontinued Nepro 1 can PO BID-W/MEALS traMADol HCl [Ultram] 50 mg PO Q12H PRN PRN Reason: Pain Discharge Medication List Acetaminophen Tab [Tylenol] 650 mg PO Q4HR PRN tab 09/11/17 [Rx] Nitroglycerin Sl Tabs [Nitrostat] 0.4 mg SUBLINGUAL Q5M PRN tab 09/19/17 [Rx] Loratadine [Claritin] 10 mg PO DAILY@0800 12/28/18 [History] Melatonin 3 mg PO HS PRN 12/28/18 [History] Calcium Acetate [PhosLo] 667 mg PO TID-W/MEALS cap 01/02/19 [Rx] Albuterol Nebulized [Ventolin Nebulized] 2.5 mg INHALATION RT-Q4H PRN 05/25/20 [History] Atorvastatin [Lipitor] 10 mg PO HS@199905/25/20 [History] House Suppliment 1 can PO DAILY@0800 05/25/20 [History] Lidocaine [Lidocaine 3% Topical Cream] 1 applic TOPICAL TUTHSA 05/25/20 [History] Midodrine HCl [ProAmatine] 10 mg PO Q8H PRN 05/25/20 [History] Ondansetron [Zofran] 4 mg PO Q6H PRN 05/25/20 [History] Pantoprazole [Protonix] 40 mg PO BID@0800,1600 05/25/20 [History] Kristina-Vangie 1 tab PO DAILY@0800 05/25/20 [History] LORazepam [Ativan] 1 mg PO Q4HR PRN #9 tab 05/27/20 [Rx] MORPHINE ORAL JUAREZ CONC 20mg/mL [Roxanol Oral Soln Conc 20MG/ML] 10 mg PO Q4H PRN 3 Days #9 ml 05/27/20 [Rx] Follow up Appointment(s)/Referral(s): Coy Martini MD [Primary Care Provider] - 1-2 days Activity/Diet/Wound Care/Special Instructions: Patient is going to [facility] on hospice Activity as tolerated Continue current diet Continue with [facility] hospice Discharge Disposition: TRANSFER TO SNF/ECF
== END 2020-05-27 17:22 | DRG 291 ==
LOC: EC 08:29 → 3SCARD 10:08
PROVIDERS: ADMIT Internal Medicine; ATTEND Internal Medicine
PROC: 5A1D70Z Performance of Urinary Filtration, Intermittent, Less than 6 Hours Per Day (ICD-10-PCS; principal; 2020-05-25)
PROC: 30233N1 Transfusion of Nonautologous Red Blood Cells into Peripheral Vein, Percutaneous Approach (ICD-10-PCS; 2020-05-25)
DX: I50.33 Acute on chronic diastolic (congestive) heart failure (principal); N18.6 End stage renal disease; J96.20 Acute and chronic respiratory failure, unspecified whether with hypoxia or hypercapnia; G93.41 Metabolic encephalopathy; E87.1 Hypo-osmolality and hyponatremia; E87.2 Acidosis; N39.0 Urinary tract infection, site not specified; D63.1 Anemia in chronic kidney disease; J44.9 Chronic obstructive pulmonary disease, unspecified; Z91.15 Patient's noncompliance with renal dialysis; Z99.2 Dependence on renal dialysis; G93.89 Other specified disorders of brain; I35.1 Nonrheumatic aortic (valve) insufficiency; Z20.828 Contact with and (suspected) exposure to other viral communicable diseases; M47.812 Spondylosis without myelopathy or radiculopathy, cervical region; M19.90 Unspecified osteoarthritis, unspecified site; R79.89 Other specified abnormal findings of blood chemistry; Z79.899 Other long term (current) drug therapy; Z86.19 Personal history of other infectious and parasitic diseases; Z87.891 Personal history of nicotine dependence; Z85.79 Personal history of other malignant neoplasms of lymphoid, hematopoietic and related tissues; Z90.710 Acquired absence of both cervix and uterus; Z90.89 Acquired absence of other organs; Z98.51 Tubal ligation status; Z87.81 Personal history of (healed) traumatic fracture; Z86.79 Personal history of other diseases of the circulatory system; Z86.73 Personal history of transient ischemic attack (TIA), and cerebral infarction without residual deficits; Z88.2 Allergy status to sulfonamides
CPT/HCPCS: 36415; 70450; 71046; 80048; 80053; 80202; 81001; 82550; 83605; 83735; 83880; 84484; 85025; 85610; 85730; 86706; 86850; 86900; 86901; 86920; 87040; 87340; 90935; 93005; 94640; 99285